=== PATIENT | male | born 1960 | race Caucasian/White ===

== ENCOUNTER → 2018-02-14 | Outpatient (CLI) | payer OTHER ==
[~2018-02-14] MED LIST: ATORVASTATIN CA20 M1 PO; DOXYCYCLINE100 M3 PO; IBUPROFEN600 MG PO; METOPROLOL SUCC50 M1 PO; ULTRAM50 MG PO; XARELTO10 MG PO; ZOLPIDEM TART10 MG PO
== END | disposition home or self-care (01) ==
LOC: RESCLI 01:49
DX: Z01.818 Encounter for other preprocedural examination (principal); I25.10 Atherosclerotic heart disease of native coronary artery without angina pectoris; I10 Essential (primary) hypertension; E78.5 Hyperlipidemia, unspecified; J45.20 Mild intermittent asthma, uncomplicated; R73.03 Prediabetes; E66.09 Other obesity due to excess calories; M20.12 Hallux valgus (acquired), left foot; M24.572 Contracture, left ankle; Z68.32 Body mass index [BMI] 32.0-32.9, adult; Z79.899 Other long term (current) drug therapy; Z87.891 Personal history of nicotine dependence

== ENCOUNTER → 2018-02-19 | Day surgery (SDC) | payer OTHER ==
[2018-02-14 13:51] LABS: BUN 9 mg/dl (7-24); CHLORIDE 105 mmol/L (98-107); CREATININE 0.59 mg/dL (0.70-1.30); POTASSIUM 3.8 mmol/L (3.5-5.1); SODIUM 139 mmol/L (136-145)
[2018-02-19] VITALS (7 sets, daily range): BP systolic 125–165; BP diastolic 56–87
[~2018-02-19] VITALS: Ht 193 cm; Wt 115.7 kg
--- NOTE | ~2018-02-19 | O ---
[place], [place] OPERATIVE NOTE [id number] UNIT #: [id number] ROOM: DOCTOR: LUIS BERRYGALINA BIRTHDATE: [birth year] DOS: 02/19/2018 SURGEON: Galina Smith DPM ASSISTANTS: 1. Dr. Jean Paul Young. 2. Hola Persaud, PGY-3. PREOPERATIVE DIAGNOSES: 1. Gastrocnemius equinus. 2. Hallux valgus on the left foot. PREOPERATIVE DIAGNOSES: 1. Gastrocnemius equinus. 2. Hallux valgus on the left foot. 3. 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 4. 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 PROCEDURES: 1. Gastrocnemius recession. 2. Lapidus bunionectomy. 3. Harvesting of calcaneal graft. 4. Capsulotomy second metatarsophalangeal joint. 5. Tendon transfer, the EDB into EDL to the left. INDICATIONS: The patient was seen in the preop holding area and appropriate site marking was performed. The patient agreed with the consent, preoperative management, and also with the appropriate site markings. He was brought in the OR and placed well-padded on OR table where anesthesia was achieved. Prior to this, he had a popliteal block performed. At this time, once anesthesia was achieved, his left foot and leg were prepped and draped in usual sterile fashion. Hemostasis was accomplished via mid thigh tourniquet. PROCEDURE #1, GASTROCNEMIUS RECESSION: Attention was directed to the posteromedial aspect of left lower leg where incision was made approximately 4 cm, was deepened in the same plane using sharp and blunt dissection, avoiding neurovascular structures, carried down to the deep tissues. At this point, I incised the deep fascial tissue at this time. This was incised and at this time, the sural nerves were all protected and retracted and the deep fascia was retracted at this time. The gastric aponeurosis was identified and a Lisa procedure was performed with the gastroc aponeurosis to increase the range of motion of the ankle joint. Deep tissues were closed with 0 Vicryl and skin was closed with 2-0 nylon. PROCEDURE #2, LAPIDUS BUNIONECTOMY: An incision was made over the TMT 1. It was deepened in the same plane using sharp and blunt dissection, avoiding neurovascular structures, carried down to the deep tissues and at this time, using retraction and dissection, the ligaments were taken down. At this time, significant amount of time was spent preparing the joint of the distal first [place], [place] OPERATIVE NOTE NAME: LEA ANTONY UNIT #: [id number] ROOM: DOCTOR: GALINA SMITH DPM BIRTHDATE: [birth year] metatarsal and the cuneiform. At this time, the base and the medial aspect of the second metatarsal as well was prepared using osteotomes, mallets, rongeurs, curettes, and drills of bleeding cancellous bone to the area of the TMT 1 as well as medial aspect of the second metatarsal. This was temporarily fixated with several K-wires and noted to be in good anatomic alignment. Small Lombardo clamp was used that reduced the IM angle to a good position at this point in time, which was performed checking the posture and noted to be in good position. A 4.0 solid cancellous screw was used from the distal first metatarsal base in to the cuneiform. At this point in time, an interfrag compression screw was used compressing the TMT 1 from distal first metatarsal cuneiform. Next, at this time, into bones, a medial-based plate was used and this was fixated with combination of locking and nonlocking screws with lag technique fixating the Lapidus and the bunion in anatomic alignment. At this point in time, this was noted to be in good position. PROCEDURE #3, HARVESTING OF CALCANEAL GRAFT: Next, attention was directed to the lateral aspect of the calcaneus where a stab incision was made inferior to the peroneal tendons and also to the sural nerve. A Bristol elevator was next used to remove the periosteum and allow for a 2.5 drillbit to puncture the lateral cortex of the calcaneus. At this time, curettes were used to harvest graft from the calcaneus and at this point in time, bone was harvested and this bone was packed into the TMT 1 deficit area, this was packed very tightly. The skin was closed using the lateral aspect of the calcaneus skin using 2-0 nylon. At this point in time, this bone was packed tightly and deep tissue was closed with 0 Vicryl, skin was closed using 2-0 nylon at the TMT 1. PROCEDURE 4, CAPSULOTOMY SECOND METATARSOPHALANGEAL JOINT: At this point in time, the second metatarsophalangeal joint was noted to be dorsally contracted toe with somewhat of a hammertoe or contracture, was elevating over to the first metatarsal. At this point in time, it was decided intraoperatively to make the second toe into its neutral position to prevent the great toe from underneath it. It was decided to do a tendon transfer and a capsulotomy of his second metatarsophalangeal joint. Tendon transfer EDB into EDL. At this time, attention was directed to the medial aspect of the second EDL tendon at the metatarsophalangeal joint. It was deepened in the same plane using sharp and blunt dissection, avoiding neurovascular structures, carried down to the deep tissues. At this point in time, the EDL and EDB tendons were isolated and . At this point in time, the EDL was corresponded proximally and the EDB was corresponded distal. At this point in time, a complete capsulotomy was performed with a #15 blade releasing the second metatarsal joint and an elevator was used to completely free the contracture at the metatarsophalangeal joint. PROCEDURE #5, TENDON TRANSFER EDB INTO EDL: At this point in time, the proximal stump of the EDB was placed in to the distal stump of the EDL with a weave graft under physiological tension. At this point in time, the K-wire was inserted from distal phalanx to cross the middle phalanx and proximal phalanx of the patient's second metatarsal to neutral anatomical position where it was in the same plane as the great toe. With this being done, the tendons were placed under physiological tension with the EDB into the distal stump of EDL and noted to be in good anatomical fixation under fluoroscopy. The skin was closed using [place], [place] OPERATIVE NOTE NAME: LEA ANTONY UNIT #: [id number] ROOM: DOCTOR: GALINA SMITH DPM BIRTHDATE: [birth year] 0 Vicryl and 2-0 nylon. Surgical wounds were dressed with Betadine-soaked Adaptic, 4 x 4s, Courtney in a sterile compression fashion. The tourniquet was dropped before 2 hours. Good cap refill time was noted to return to all digits of the left foot. He tolerated the procedure and anesthesia well. At this time, the wounds were dressed with Betadine-soaked Adaptic, 4 x 4s, Courtney in a sterile compressive fashion. He tolerated the procedure and anesthesia well and left the OR with vital signs stable and vascular status intact. BK cast applied. GALINA SMITH DPM CM:OPRECORD:OPERATIVE NOTE [id number] GALINA SMITH DPM 04/01/18 1549 interface
--- NOTE | ~2018-02-19 | WRIGHTHP ---
[place], [place] PATIENT HISTORY AND PHYSICAL EXAM [id number] UNIT #: [id number] ROOM: DOCTOR: GALINA SMITH DPM BIRTHDATE: [birth year] DOS: 02/19/2018 INDICATIONS: The patient is seen in the preop holding room and appropriate site marking was performed. He is aware of pros, cons, risks, and benefits. He understands overcorrection, undercorrection, recurrence, numbness, infection, nonunion, delayed union, malunion, DVT, PE, limb loss, RSD, CRPS, artery, vein and nerve damage. At this time, the patient is sent for surgery at [facility] on 02/19/2018 for gastroc recession, harvesting of calcaneal graft. At this point, he is aware of pros, cons, risks and benefits, understands pros, cons, risks and benefits. He understands about perioperative management. He agreed to appropriate site marking. He consented with the procedure using anticoagulation through surgery. He understands the pros, cons, risks, and benefits of this. With this in mind, he has agreed to the consent, signed the consent, verbally agreed to the anticoagulation as well as the postoperative management. GALINA SMITH DPM CM:HISPHYS:PATIENT HISTORY AND PHYSICAL EXAMINATION [id number] GALINA SMITH DPM 04/10/18 0755 interface
--- NOTE | ~2018-02-19 | EKG ---
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
--- NOTE | ~2018-02-19 | WRIGHTHP ---
[place], [place] PATIENT HISTORY AND PHYSICAL EXAM [id number] UN[facility] #: [id number] ROOM: DOCTOR: GALINA SMITH DPM BIRTHDATE: [birth year] DOS: 02/19/2018 LOWER EXTREMITY PHYSICAL EXAMINATION VASCULAR: Palpable pedal pulses 2/4 DP and PT. Good cap refill time of the left lower extremity. NEUROLOGIC: Intact epicritic sensation, left lower extremity. MUSCULOSKELETAL: He has a gastrocnemius equinus. He has an ankle joint contracture of the left posterior ankle. He also has instability and hypermobility of the first TMT 1 of the left. DERMATOLOGIC: Hyperkeratosis of sub-first metatarsal medially and also the right great toe secondary to valgus rotation of his great toe. ORTHOPEDIC: He has hallux valgus deformity on the left and he also has extensor substitution and joint contractures metatarsophalangeal joints 2, 3, 4, 5 left and metatarsophalangeal joint contracture, 2, 3, 4, 5. GALINA SMITH DPM CM:HISPHYS:PATIENT HISTORY AND PHYSICAL EXAMINATION [id number] GALINA SMITH DPM 04/10/18 0755 interface
== END | disposition home or self-care (01) ==
LOC: SDC 02-14 10:15
PROVIDERS: Podiatrist
DX: M21.6X2 Other acquired deformities of left foot (principal); M20.12 Hallux valgus (acquired), left foot; M24.575 Contracture, left foot; I10 Essential (primary) hypertension; I25.10 Atherosclerotic heart disease of native coronary artery without angina pectoris; E78.5 Hyperlipidemia, unspecified; M19.90 Unspecified osteoarthritis, unspecified site; G89.29 Other chronic pain; F41.9 Anxiety disorder, unspecified; Z95.5 Presence of coronary angioplasty implant and graft; Z90.49 Acquired absence of other specified parts of digestive tract; Z98.890 Other specified postprocedural states; Z88.6 Allergy status to analgesic agent; Z88.5 Allergy status to narcotic agent; Z87.891 Personal history of nicotine dependence

== ENCOUNTER 2020-03-20 20:49 | Emergency (ER) | payer MEDICARE ==
[~2020-03-20] VITALS: Wt 110.7 kg
[2020-03-20 21:32] LABS: BILIRUBIN Negative (Negative); BLOOD Negative (Negative); CLARITY Clear (Clear); COLOR Yellow (Yellow); GLUCOSE Negative (Negative); KETONE Trace (Negative); LEUKO ESTERASE Negative (Negative); NITRITE Negative (Negative); SPECIFIC GRAVITY 1.025 (1.001-1.030)
[2020-03-20 21:35] LABS: BASO % 0.2 % (0.0-1.0); EOS # 0.2 10*3/uL (0.0-0.4); EOS % 1.5 % (1.0-4.0); HEMATOCRIT 45.4 % (42.0-52.0); LYMPH % 17.8 % (27.0-41.0); MEAN CELL VOLUME 97.4 fl (80.0-94.0); MEAN CORPUSCULAR HGB 31.5 pg (27.0-31.0); MEAN CORPUSCULAR HGB CONC 32.4 g/dl (33.0-37.0); MEAN PLATELET VOLUME 9.1 fl (9.6-12.3); MONO # 1.1 10*3/uL (0.1-1.0); MONO % 9.6 % (3.0-9.0); NEUT # 7.8 10*3/uL (2.3-7.9); NEUT % 70.3 % (47.0-73.0); PLATELET COUNT AUTOMATED 280 10*3/uL (130-400); RED BLOOD COUNT 4.66 10*6/uL (4.50-5.90); RED CELL DISTRI WIDTH 13.7 % (0-14.5); WHITE BLOOD COUNT 11.2 10*3/uL (4.8-10.8)
[2020-03-20 21:48] LABS: BACTERIA 1+; MUCOUS 3+
[2020-03-20 21:54] LABS: ALBUMIN 3.1 gm/dl (3.1-4.5); ALKALINE PHOSPHATASE 61 U/L (45-117); BUN 15 mg/dl (7-24); CHLORIDE 109 mmol/L (98-107); CREATININE 0.83 mg/dL (0.70-1.30); LIPASE 121 U/L (73-393); POTASSIUM 3.9 mmol/L (3.5-5.1); SGOT/AST 21 IU/L (3-35); SGPT/ALT 25 U/L (12-78); SODIUM 142 mmol/L (136-145); TOTAL PROTEIN 6.3 gm/dL (6.4-8.2)
== END 2020-03-21 00:24 | disposition home or self-care (01) ==
LOC: ED 20:49
PROVIDERS: Nurse Practitioner Family
DX: K52.9 Noninfective gastroenteritis and colitis, unspecified (principal); Z88.6 Allergy status to analgesic agent; Z79.899 Other long term (current) drug therapy

== ENCOUNTER 2020-03-23 18:33 | Emergency (ER) | payer MEDICARE ==
[~2020-03-23] VITALS: Wt 111.1 kg
[2020-03-23 19:23] LABS: BASO % 0.3 % (0.0-1.0); EOS # 0.2 10*3/uL (0.0-0.4); EOS % 2.8 % (1.0-4.0); HEMATOCRIT 43.3 % (42.0-52.0); LYMPH # 1.4 10*3/uL (1.3-4.4); LYMPH % 20.5 % (27.0-41.0); MEAN CELL VOLUME 96.4 fl (80.0-94.0); MEAN CORPUSCULAR HGB 31.8 pg (27.0-31.0); MONO # 0.6 10*3/uL (0.1-1.0); MONO % 8.9 % (3.0-9.0); NEUT # 4.7 10*3/uL (2.3-7.9); NEUT % 67.2 % (47.0-73.0); PLATELET COUNT AUTOMATED 273 10*3/uL (130-400); RED BLOOD COUNT 4.49 10*6/uL (4.50-5.90); RED CELL DISTRI WIDTH 13.4 % (0-14.5)
[2020-03-23 19:38] LABS: ALBUMIN 3.2 gm/dl (3.1-4.5); ALKALINE PHOSPHATASE 61 U/L (45-117); BUN 13 mg/dl (7-24); CHLORIDE 109 mmol/L (98-107); LIPASE 193 U/L (73-393); POTASSIUM 3.9 mmol/L (3.5-5.1); SGOT/AST 23 IU/L (3-35); SGPT/ALT 19 U/L (12-78); SODIUM 146 mmol/L (136-145); TOTAL PROTEIN 6.7 gm/dL (6.4-8.2)
[2020-03-23] MEDS ORDERED: VANCOMYCIN HCL125 MG PO ×2 (22:08)
== END 2020-03-23 22:20 | disposition home or self-care (01) ==
LOC: ED 18:33
PROVIDERS: Physician Assistant
DX: K52.9 Noninfective gastroenteritis and colitis, unspecified (principal); Z79.899 Other long term (current) drug therapy; Z88.8 Allergy status to other drugs, medicaments and biological substances

== ENCOUNTER 2020-03-25 02:01 | Inpatient (IN) | payer MEDICARE ==
[~2020-03-25] VITALS: Ht 193 cm; Wt 111.0 kg
[2020-03-25] VITALS (7 sets, daily range): BP systolic 110–160; BP diastolic 59–100
[~2020-03-25 02:01] MED LIST changes: +VANCOMYCIN HCL125 MG PO
--- NOTE | 2020-03-25 02:30 | NUR ---
ACCESSED [employer].
--- NOTE | 2020-03-25 03:25 | NUR ---
PT. HAS FILLED 2 EMESIS BAGS.
--- NOTE | 2020-03-25 03:26 | NUR ---
PT. UP AND TO BATHROOM AT THIS TIME.
--- NOTE | 2020-03-25 03:57 | NUR ---
PT. STILL C/O PAIN IN ABDOMEN, DR. POE NOTIFIED. WILL CONTINUE TO MONITOR.
--- NOTE | 2020-03-25 04:05 | NUR ---
MEDICATED PT. AGAIN WITH MORPHINE SULFATE 4MG. WILL CONTINUE TO MONITOR.
[2020-03-25 04:18] LABS: HEMATOCRIT 41.9 % (42.0-52.0); MEAN CELL VOLUME 97.2 fl (80.0-94.0); MEAN CORPUSCULAR HGB 32.3 pg (27.0-31.0); MEAN CORPUSCULAR HGB CONC 33.2 g/dl (33.0-37.0); MEAN PLATELET VOLUME 9.2 fl (9.6-12.3); PLATELET COUNT AUTOMATED 272 10*3/uL (130-400); RED BLOOD COUNT 4.31 10*6/uL (4.50-5.90); RED CELL DISTRI WIDTH 13.2 % (0-14.5); WHITE BLOOD COUNT 11.5 10*3/uL (4.8-10.8)
[2020-03-25 04:19] LABS: ALBUMIN 3.6 gm/dl (3.1-4.5); ALKALINE PHOSPHATASE 60 U/L (45-117); BASO % 0.3 % (0.0-1.0); BUN 12 mg/dl (7-24); CHLORIDE 104 mmol/L (98-107); CREATININE 0.86 mg/dL (0.70-1.30); EOS # 0.2 10*3/uL (0.0-0.4); EOS % 1.6 % (1.0-4.0); LIPASE 88 U/L (73-393); LYMPH # 1.2 10*3/uL (1.3-4.4); MONO # 1.2 10*3/uL (0.1-1.0); MONO % 10.1 % (3.0-9.0); NEUT # 8.9 10*3/uL (2.3-7.9); NEUT % 77.7 % (47.0-73.0); POTASSIUM 3.1 mmol/L (3.5-5.1); SGOT/AST 28 IU/L (3-35); SGPT/ALT 21 U/L (12-78); SODIUM 143 mmol/L (136-145); TOTAL PROTEIN 6.8 gm/dL (6.4-8.2)
[2020-03-25] MEDS ORDERED: OXYCODONE HCL10 M1 PO (06:17)
[2020-03-25] MEDS ORDERED: PROTONIX40 MG PO (06:17)
[2020-03-25] MEDS ORDERED: VENT7GM INH (06:18)
--- NOTE | 2020-03-25 07:01 | NUR ---
PT. RESTING IN BED. RR EASY AND NON-LABORED. APPEARS TO BE IN NO DISTRESS. CALL LIGHT WITHIN REACH. WILL CONTINUE TO MONITOR.
--- NOTE | 2020-03-25 08:04 | NUR ---
PT RESTING IN BED. C/O LEFT LOWER QUAD PAIN, RATES PAIN 9 ON PAIN SCALE 0-10. MEDICATED WITH MORPHINE IV PER PRN ORDER, SEE EMAR. ABD TENDER TO TOUCH. IVF INFUSING WITH NO PROBLEM. CALL LIGHT IN REACH. WILL CON'T TO MONITOR.
--- NOTE | 2020-03-25 08:16 | NUR ---
PT WAKE AND ORINETED. PT C/O CHRONIC BACK PAIN, MORPINE GIVEN, VS WNL. NS INFUSING AT 125 CC/HR PER ORDER. LUNGS CLEAR, ABD SOFT NON TENDER. RESPIRATIONS EASY NON-LABORED. CALL LIGHT IN REACH. MENU GIVEN TO ORDER BREAKFAST, PT IS AMBULATORY TO THE PHONE. WILL CONTINUE TO MONITOR.
--- NOTE | 2020-03-25 09:26 | NUR ---
FRANCESCA INGRAM TO DR. FAYE SPOKE TO VINOD, ADVISED OF CONSULT.
--- NOTE | 2020-03-25 10:47 | NUR ---
PT VERY UPSET HE IS IN THE ER FOR ADMISSION. PT HAS BEEN WELL TAKEN OF. MEDICATIONS ORDERED, INCLUDING CATHFLO HE WANTED, BREAKFAST, QUESTIONS WERE ANSWERED, NEW LINENS PRVOIDED. PT REPORTS HE DOSE NOT WANT TO BE HERE IN THE ER. PT VERY RUDE.
--- NOTE | 2020-03-25 12:48 | NUR ---
PT MEDICATED FOR PAIN. PT UP AND AMBULATING ABOUT THE ROOM AND DEPT, NO DISTRESS NOTED. WILL MONITOR.
--- NOTE | 2020-03-25 14:37 | NUR ---
PT ADMINISTERED 1MG MORPHINE X1 PER ORDER PT IN NO DISTRESS, WATCHING TV, TAKING ON THE PHONE AND AMBULATING IN ROOM. WILL MONITOR.
--- NOTE | 2020-03-25 16:35 | NUR ---
PT WAS ASK LET LET ME KNOW WHEN OR IF HE CAN PROVIDE A STOOL SAMPLE, PT REPORTS HE DOES NOT NEED TO HAVE A BM AT THIS. PT HAS NOT REPORTED ANY DIARRHEA THIS SHIFT. PT UP AMBULATING, NO DISTRESS NOTED.
--- NOTE | 2020-03-25 21:00 | NUR ---
PT RESTING IN BED SLEEPING, RESP-EASY AND REGULAR. IVF INFUSING WITH NO PROBLEM. MEDICATION SEEMS TO BE EFFECTIVE. CALL LIGHT IN REACH.
--- NOTE | 2020-03-25 23:20 | NUR ---
PT IS VERY SHORT OF BREATH MOVING FROM CART TO BED. PT ANXIOUS AND YELLING TO WAIT AND LEAVE HIM ALONE RIGHT NOW. REFUSED TO LOOK AT [place] FOR WOUND PT STATE HE HAS. OXYGEN IN USE. RESPIRATORY CALLED FOR TREATMENT.
--- NOTE | 2020-03-25 23:25 | NUR ---
MEDICATED WITH MORPHINE IV PER PRN ORDER, SEE EMAR. FOR C/O LEFT SIDE/RIB PAIN, RATES PAIN 8 ON PAIN SCALE 0-10. CALL ALIGHT IN REACH.
--- NOTE | 2020-03-25 23:42 | NUR ---
PT RECEIVING BREATHING TX. AT THIS TIME. RESP-22, BREATHING EASIER AT THIS TIME. MEDICATION EFFECTIVE PER PT. CALL LIGHT IN REACH.
[2020-03-26] VITALS: BP 133/70
--- NOTE | 2020-03-26 | NUR ---
PT SLEEPING IN BED. RESP-EASY AND REGULAR. IVF INFUSING WITH NO PROBLEM. CALL LIGHT IN REACH. SEE SHIFT ASSESSMENT.
--- NOTE | 2020-03-26 01:15 | NUR ---
PT C/O LEFT LOWER QUAD PAIN, RATES PAIN 9 ON PAIN SCALE 0-10. MEDICATED WITH ROXYCODONE PO, SEE EMAR. CALL LIGHT IN REACH. IVF INFUSING WITH NO PROBLEM.
--- NOTE | 2020-03-26 02:52 | NUR ---
MEDICATED WITH MORPHINE IV PER PRN ORDER, SEE EMAR. FOR C/O LLQ PAIN, RATES PAIN 7 OR 8 ON PAIN SCALE 0-10. CALL LIGHT IN REACH.
--- NOTE | 2020-03-26 03:50 | NUR ---
PT RESTING IN BED WITH EYES CLOSED. RESP-EASY AND REGULAR. MEDICATION SEEMS TO BE EFFECTIVE. CALL LIGHT IN REACH.
--- NOTE | 2020-03-26 05:54 | NUR ---
MEDICATED WITH ROUTINE OXYCODONE FOR C/O LLQ PAIN, RATES PAIN 6 ON PAIN SCALE 0-10. CALL LIGHT IN REACH. IVF INFUSING WITH NO PROLBEM.
--- NOTE | 2020-03-26 06:45 | NUR ---
PT RESTING IN BED. STATES MEDICATION HELPS. NO NEW COMPLAINTS. CALL LIGHT IN REACH.
[2020-03-26 07:00] LABS: BASO % 0.3 % (0.0-1.0); EOS # 0.2 10*3/uL (0.0-0.4); EOS % 3.5 % (1.0-4.0); HEMATOCRIT 37.2 % (42.0-52.0); LYMPH # 1.1 10*3/uL (1.3-4.4); LYMPH % 17.5 % (27.0-41.0); MEAN CELL VOLUME 99.2 fl (80.0-94.0); MEAN CORPUSCULAR HGB 32.5 pg (27.0-31.0); MEAN CORPUSCULAR HGB CONC 32.8 g/dl (33.0-37.0); MEAN PLATELET VOLUME 9.3 fl (9.6-12.3); MONO # 0.8 10*3/uL (0.1-1.0); MONO % 12.1 % (3.0-9.0); NEUT # 4.2 10*3/uL (2.3-7.9); NEUT % 66.3 % (47.0-73.0); PLATELET COUNT AUTOMATED 214 10*3/uL (130-400); RED BLOOD COUNT 3.75 10*6/uL (4.50-5.90); RED CELL DISTRI WIDTH 13.3 % (0-14.5); WHITE BLOOD COUNT 6.4 10*3/uL (4.8-10.8)
[2020-03-26 07:15] LABS: BUN 8 mg/dl (7-24); CHLORIDE 107 mmol/L (98-107); CREATININE 0.62 mg/dL (0.70-1.30); POTASSIUM 3.8 mmol/L (3.5-5.1); SODIUM 142 mmol/L (136-145)
[2020-03-26 08:00] VITALS: BP 125/74
--- NOTE | 2020-03-26 08:33 | NUR ---
MORPHINE 2 MG GIVEN FOR C/O GENERALIZED ABDOMINAL PAIN,12/20.
--- NOTE | 2020-03-26 09:28 | NUR ---
Recreational Sports Director SPOKE WITH PATIENT VIA PHONE. Patient states lives at ALONE with NO ONE. There are 13 steps in the home. Physician: ANDREZ TRISTAN Pharmacy: [facility] Home health services: NONE Patient's level of ADLs: INDEPENDENT Patient has working utilities: YES DME: [facility] [facility] Follow-up physician's appointment after d/c: WILL BE MADE BY RN HOSPITALIST COORDINATOR Does patient want to access PORTAL?: NO Discharge plan : CLOTH BLEACHING RANGE TENDER SPOKE WITH THE PATIENT VIA PHONE. PATIENT STATED HE LIVES AT HOME ALONE. PATIENT STATED THAT HE IS INDEPENDENT IN HIS CARE. PATIENT STATED THAT HE DOES HAVE HOME OXYGEN AND NEBULIZER FROM HIS DOCTORS OFFICE. PATIENT DOES DRIVE. PATIENT REPORTS NO NEEDS AT THIS TIME AND WILL RETURN HOME UPON DISCHARGE. YASH HUDSON
--- NOTE | 2020-03-26 10:50 | NUR ---
Time: 1050 A 89 year old FEMALE admitted to 5E under services of CABRERA CLEMENTE DO. Pt. arrived via bed from ER. Chief complaint: UTI. LINO QUINTEROS
--- NOTE | 2020-03-26 11:28 | NUR ---
NOTIFIED DR WOMACK OF LOSS OF IV ACCESS. PT REFUSES ANOTHER ACCUCATH AND ANY ATTEMPT TO PLACE A PERIPHERL.
[2020-03-26 12:00] VITALS: BP 132/84
--- NOTE | 2020-03-26 13:51 | NUR ---
MORPHINE 2 MG GIVEN FOR C/O BABDOMINAL PAIN, 12/20.
[2020-03-26 16:00] VITALS: BP 123/67
--- NOTE | 2020-03-26 19:30 | NUR ---
PT RESTING IN BED, SLEEPING. RESPIRATIONS EASY AND UNLABORED. NO S/S OF DISTRESS NOTED. CALL LIGHT IN REACH.
[2020-03-26 20:00] VITALS: BP 118/65
--- NOTE | 2020-03-26 20:19 | NUR ---
PT GIVEN MORPHINE 2 MG FOR C/O PAIN TO LLQ OF ABDOMEN. WILL MONITOR FOR EFFECTIVENESS. CALL LIGHT IN REACH.
--- NOTE | 2020-03-26 21:19 | NUR ---
PT STATES THAT MORPHINE IS SOMEWHAT EFFECTIVE.
--- NOTE | 2020-03-26 21:57 | NUR ---
PT ASKS FOR SOMETHING ELSE FOR PAIN. DR BENITEZ NOTIFIED AND ORDERS RECEIVED FOR ONE TIME DOSE OF TORADOL 15 MG VIA IVP. PT MEDICATED AT THIS TIME. WILL MONITOR FOR EFFECTIVENESS. CALL LIGHT IN REACH.
--- NOTE | 2020-03-26 22:57 | NUR ---
PT STATES THAT TORADOL IS EFFECTIVE.
[2020-03-27] VITALS: BP 117/50
--- NOTE | 2020-03-27 01:09 | NUR ---
PT GIVEN MORPHINE FOR C/O PAIN TO LLQ OF ABDOMEN. WILL MONITOR FOR EFFECTIVENESS.
--- NOTE | 2020-03-27 02:09 | NUR ---
PT STATES THAT MORPHINE IS SOMEWHAT EFFECTIVE.
--- NOTE | 2020-03-27 05:10 | NUR ---
PT GIVEN MORPHINE 2 MG FOR C/O PAIN TO LLQ OF ABDOMEN. WILL MONITOR FOR EFFECTIVENESS. CALL LIGHT IN REACH.
--- NOTE | 2020-03-27 06:10 | NUR ---
PT STATES THAT MORPHINE IS SOMEWHAT EFFECTIVE.
[2020-03-27 06:40] LABS: BASO % 0.5 % (0.0-1.0); EOS # 0.2 10*3/uL (0.0-0.4); EOS % 3.1 % (1.0-4.0); MEAN CELL VOLUME 97.4 fl (80.0-94.0); MEAN CORPUSCULAR HGB 32.1 pg (27.0-31.0); MEAN CORPUSCULAR HGB CONC 32.9 g/dl (33.0-37.0); MEAN PLATELET VOLUME 9.4 fl (9.6-12.3); MONO # 0.7 10*3/uL (0.1-1.0); MONO % 12.1 % (3.0-9.0); NEUT # 4.1 10*3/uL (2.3-7.9); NEUT % 66.8 % (47.0-73.0); PLATELET COUNT AUTOMATED 224 10*3/uL (130-400); RED CELL DISTRI WIDTH 13.1 % (0-14.5); WHITE BLOOD COUNT 6.1 10*3/uL (4.8-10.8)
[2020-03-27 06:58] LABS: ALBUMIN 2.9 gm/dl (3.1-4.5); ALKALINE PHOSPHATASE 53 U/L (45-117); BUN 6 mg/dl (7-24); CHLORIDE 113 mmol/L (98-107); CREATININE 0.58 mg/dL (0.70-1.30); POTASSIUM 4.1 mmol/L (3.5-5.1); SGOT/AST 24 IU/L (3-35); SGPT/ALT 14 U/L (12-78); SODIUM 142 mmol/L (136-145); TOTAL PROTEIN 5.8 gm/dL (6.4-8.2)
[2020-03-27 08:00] VITALS: BP 160/98
--- NOTE | 2020-03-27 10:11 | NUR ---
MORPHINE 2 MG GIVEN FOR C/O ABD PAIN,12/20.
[2020-03-27 12:00] VITALS: BP 158/78
--- NOTE | 2020-03-27 13:33 | NUR ---
NOTIFIED DR MOYA THAT PER MICRO PT WAS C DIFF POSITIVE.
--- NOTE | 2020-03-27 14:40 | NUR ---
MORPHINE 2 MG GIVEN FOR C/O ABD PAIN,12/20.
--- NOTE | 2020-03-27 15:03 | NUR ---
PT REQUESTING I CALL PER PT HE STATED " TOLD HIM HE WOULD GIVE HIM MORE MEDICATION". I NOTIFIED DR ADAIR.
[2020-03-27 16:00] VITALS: BP 138/64
--- NOTE | 2020-03-27 16:20 | NUR ---
PT UPSET AND SLAMMING STUFF AROUND INSIDE THE ROOM REQUESTING ADDITIONAL PAIN MEDICATION. PT STATES THE MORPHINE AND HIS SCHEDULED ORAL ROXICODONE 10 MG WERE NOT EFFECTIVE. PT UPSET AND CUSSING. SPOKE WITH DR ADAIR TO SEE PT. PT REQUESTING TO LICENSED CLUB MANAGER AND PAIN MEDS.
--- NOTE | 2020-03-27 16:50 | NUR ---
MEDICATED PT WITH MORPHINE 2MG IX DOSE. ASKED PT AT THIS TIME IF HE WOULD STILL LIKE TO SPEAK TO THE INDUSTRIAL DESIGN INTERN. PT REFUSES AT THIS TIME.
--- NOTE | 2020-03-27 19:48 | NUR ---
PATIENT RESTING IN BED. CO ABD PAIN RATED A 9/10. MEDICATED WITH PRN MORPHINE PER PATIENT REQUEST AND PER ORDER. WILL ASSESS EFFECTIVENESS. DENIES ANY OTHER NEEDS/COMPLAINTS. ASSESSMENT COMPLETE. RESPS EASY AND REGULAR. CALL LIGHT IN REACH.
[2020-03-27 20:00] VITALS: BP 128/85
--- NOTE | 2020-03-27 20:48 | NUR ---
PER PATIENT MORPHINE HELPED SOME.
--- NOTE | 2020-03-27 21:55 | NUR ---
INFORMED PATIENT COMPLAINING OF PAIN AND REQUESTING ANOTHER DOSE OF MORPHINE LIKE HE RECEIVE EARLIER. SEE NEW ORDERS.
--- NOTE | 2020-03-27 22:32 | NUR ---
MEDICATED WITH PRN MORPHINE FOR CO ABDOMINAL PAIN. WILL ASSESS EFFECTIVENESS. CALL LIGHT IN REACH.
--- NOTE | 2020-03-27 23:42 | NUR ---
SCHEDULE PO ROXICODONE AND PO VANC GIVEN PER ORDER. PT RATING ABDOMINAL PAIN 12/20. WILL MONITOR EFFECTIVENESS. CALL LIGHT IN REACH.
[2020-03-28] VITALS: BP 134/77
--- NOTE | 2020-03-28 00:35 | NUR ---
EARLIER MEDS APPEAR EFFECTIVE. PT ASLEEP IN BED. NO S/S OF DISTRESS NOTED. WILL MONITOR. CALL LIGHT IN REACH.
--- NOTE | 2020-03-28 02:24 | NUR ---
IV MORPHINE GIVEN PER PRN ORDER FOR C/O ABDOMINAL PAIN RATED 7/10. WILL MONITOR. CALL LIGHT IN REACH.
--- NOTE | 2020-03-28 03:01 | NUR ---
EARLIER MEDICATION APPEARS EFFECTIVE. PT ASLEEP IN BED. RESPIRATIONS EASY. NO S/S OF DISTRESS NOTED. WILL MONITOR. CALL LIGHT IN REACH.
--- NOTE | 2020-03-28 05:40 | NUR ---
PT REQUESTED AND RECEIVED IV MORPHINE FOR C/O ABD PAIN RATED 8/10. STATES SCHEDULED ANITA NOT EFFECTIVE AT THIS TIME. WILL MONITOR. CALL LIGHT IN REACH.
--- NOTE | 2020-03-28 06:30 | NUR ---
EARLIER MEDS APPEAR EFFECTIVE. NO S/S OF DISTRESS NOTED.
[2020-03-28 08:00] VITALS: BP 139/72
--- NOTE | 2020-03-28 08:00 | NUR ---
IN TO ROOM. PATIENT AWAKE, ALERT AND ORIENTED. PT COMPLAINS THAT HE IS HAVING LEFT LOWER QUD PAIN. PT EDUCATED ON PRN PAIN MEDICATIONS. NO OTHER STATED COMPLAINTS AT THIS TIME. RESPIRATIONS ARE EASY AND REGULAR. NO SOB NOTED AT REST. PT ABLE TO REPOSITION SELF FOR COMFORT, AND ENCOURAGE TO DO SO. BED IN LOWEST LOCKED POSITION AND CALL LIGHT WITHIN REACH. WILL CONTINUE TO MONITOR.
--- NOTE | 2020-03-28 09:00 | NUR ---
case management visits with patient, he states he will return home when discharged and denies any home needs, case management will follow
--- NOTE | 2020-03-28 09:04 | NUR ---
PT COMPLAINS OF LEFT LOWER QUAD PAIN RATED AT 8. PRN MORPHINE ADMINISTERED AT THIS TIME. WILL MONITOR FOR EFFECTIVENESS.
--- NOTE | 2020-03-28 10:00 | NUR ---
PT STATES MORPHINE WAS EFFECTIVE.
[2020-03-28 12:00] VITALS: BP 140/68
--- NOTE | 2020-03-28 13:03 | NUR ---
PT COMPLAINS OF LEFT LOWER QUAD PAIN RATED AT AN 8. PRN MORPHINE ADMINISTERED AT THIS TIME.
--- NOTE | 2020-03-28 14:00 | NUR ---
PT STATES MORPHINE WAS EFFECTIVE.
[2020-03-28 16:00] VITALS: BP 123/57
[2020-03-28 20:00] VITALS: BP 129/69
--- NOTE | 2020-03-28 20:53 | NUR ---
IV MORPHINE GIVEN FOR C/O ABDOMINAL PAIN RATED 7/10. WILL MONITOR EFFECTIVENESS. CALL LIGHT IN REACH.
--- NOTE | 2020-03-28 21:45 | NUR ---
EARLIER MEDS APPEAR EFFECTIVE. PT ASLEEP. NO S/S OF DISTRESS NOTED. WILL MONITOR. CALL LIGHT IN REACH.
--- NOTE | 2020-03-28 23:00 | NUR ---
SCHEDULED ROXICODONE GIVEN PER ORDER. PT RATING ABD PAIN 12/20. WILL MONITOR. CALL LIGHT IN REACH.
--- NOTE | 2020-03-28 23:30 | NUR ---
NO FURTHER COMPLAINTS FROM PT. PT DENIES ANY NEEDS. WILL MONITOR.
[2020-03-29] VITALS: BP 150/82
--- NOTE | 2020-03-29 | NUR ---
PATIENT MEDICATED WITH MORPHINE FOR C/O LLQ PAIN 12/20. WILL MONITOR
--- NOTE | 2020-03-29 00:45 | NUR ---
EARLIER MEDICATION APPEARS EFFECTIVE. PT ASLEEP. NO S/S OF DISTRESS NOTED.
--- NOTE | 2020-03-29 03:45 | NUR ---
PT REQUESTED AND RECEIVED IV MORPHINE PER PRN ORDER FOR C/O PAIN IN LLQ RATED 7/10. WILL MONITOR. CALL LIGHT IN REACH.
--- NOTE | 2020-03-29 04:30 | NUR ---
PT SLEEPING. EARLIER MEDS APPEAR EFFECTIVE. WILL MONITOR. CALL LIGHT IN REACH.
--- NOTE | 2020-03-29 05:51 | NUR ---
SCHEDULED PO ROXICODONE GIVEN. PT RATING PAIN IN ABDOMEN 11/19. WILL MONITOR. CALL LIGHT IN REACH.
--- NOTE | 2020-03-29 06:38 | NUR ---
PT SLEEPING. EARLIER MEDS APPEAR EFFECTIVE. WILL MONITOR.
--- NOTE | 2020-03-29 07:07 | NUR ---
24 HR chart check completed.
[2020-03-29 08:00] VITALS: BP 144/77
[2020-03-29] MEDS ORDERED: VANCOMYCIN HCL250 MG PO ×2 (08:55)
--- NOTE | 2020-03-29 09:00 | NUR ---
case management talks with patient, he is a possibly discharge to home today, he denies any home needs, case management will follow
--- NOTE | 2020-03-29 10:48 | NUR ---
CALLED JASWINDER CARVAJAL AND NOTIFIED HER THAT PT WAS REQUESTING A HEPARIN FLUSH TO DE-ACCESS MEDIPORT. SEE NEW ORDER.
--- NOTE | 2020-03-29 11:26 | NUR ---
Discharge instructions reviewed with patient/family. Patient receptive and verbalizes understanding. Follow-up care arranged. Written instructions given to patient/family. MEDIPORT WAS DE-ACCESSED. PT HAD NO QUESTIONS AND UNDERSTOOD THAT HE SHOULD BE WIPING DOWN SURFACES AND THE TOLIET AFTER EVERY USE AND TO PRACTICE GOOD HAND HYGIENE. [facility]
== END 2020-03-29 11:26 | disposition home or self-care (01) | DRG 373 ==
LOC: ED 02:01 → EDHOLD 05:14 → 5E 05:14
PROVIDERS: Internal Medicine; ADMIT Internal Medicine; ATTEND Internal Medicine
DX: A04.72 Enterocolitis due to Clostridium difficile, not specified as recurrent (principal); D53.9 Nutritional anemia, unspecified; E87.6 Hypokalemia; R73.9 Hyperglycemia, unspecified; E83.41 Hypermagnesemia; I10 Essential (primary) hypertension; E78.5 Hyperlipidemia, unspecified; I25.10 Atherosclerotic heart disease of native coronary artery without angina pectoris; K21.9 Gastro-esophageal reflux disease without esophagitis; Z88.5 Allergy status to narcotic agent; Z88.8 Allergy status to other drugs, medicaments and biological substances; Z87.891 Personal history of nicotine dependence; Z82.0 Family history of epilepsy and other diseases of the nervous system; Z80.9 Family history of malignant neoplasm, unspecified; Z79.899 Other long term (current) drug therapy; Z79.01 Long term (current) use of anticoagulants

== ENCOUNTER 2020-04-09 16:26 | Emergency (ER) | payer MEDICARE ==
[~2020-04-09 16:26] MED LIST changes: +OXYCODONE HCL10 M1 PO; +PROTONIX40 MG PO; +VANCOMYCIN HCL250 MG PO; +VENT7GM INH
[2020-04-09 19:28] LABS: BASO % 0.4 % (0.0-1.0); EOS # 0.2 10*3/uL (0.0-0.4); EOS % 4.1 % (1.0-4.0); LYMPH # 1.2 10*3/uL (1.3-4.4); LYMPH % 24.9 % (27.0-41.0); MEAN CELL VOLUME 97.2 fl (80.0-94.0); MEAN CORPUSCULAR HGB CONC 32.9 g/dl (33.0-37.0); MEAN PLATELET VOLUME 9.2 fl (9.6-12.3); MONO # 0.6 10*3/uL (0.1-1.0); MONO % 12.2 % (3.0-9.0); NEUT # 2.9 10*3/uL (2.3-7.9); NEUT % 58.2 % (47.0-73.0); PLATELET COUNT AUTOMATED 308 10*3/uL (130-400); RED BLOOD COUNT 4.22 10*6/uL (4.50-5.90); RED CELL DISTRI WIDTH 13.1 % (0-14.5); WHITE BLOOD COUNT 4.9 10*3/uL (4.8-10.8)
[2020-04-09 19:43] LABS: ALBUMIN 3.2 gm/dl (3.1-4.5); ALKALINE PHOSPHATASE 71 U/L (45-117); BUN 7 mg/dl (7-24); CHLORIDE 110 mmol/L (98-107); CREATININE 0.54 mg/dL (0.70-1.30); LIPASE 181 U/L (73-393); POTASSIUM 3.8 mmol/L (3.5-5.1); SGOT/AST 23 IU/L (3-35); SGPT/ALT 19 U/L (12-78); SODIUM 140 mmol/L (136-145); TOTAL PROTEIN 6.3 gm/dL (6.4-8.2)
== END 2020-04-09 20:41 | disposition home or self-care (01) ==
LOC: ED 16:26
PROVIDERS: Physician Assistant
DX: R19.7 Diarrhea, unspecified (principal); Z88.8 Allergy status to other drugs, medicaments and biological substances; Z79.899 Other long term (current) drug therapy; Z90.49 Acquired absence of other specified parts of digestive tract

== ENCOUNTER 2020-04-10 02:43 | Emergency (ER) | payer MEDICARE ==
[~2020-04-10] VITALS: Ht 193 cm; Wt 108.9 kg
[2020-04-10 03:49] LABS: BASO % 0.8 % (0.0-1.0); EOS # 0.3 10*3/uL (0.0-0.4); EOS % 4.8 % (1.0-4.0); HEMATOCRIT 42.1 % (42.0-52.0); LYMPH # 1.4 10*3/uL (1.3-4.4); LYMPH % 26.4 % (27.0-41.0); MEAN CELL VOLUME 98.1 fl (80.0-94.0); MEAN CORPUSCULAR HGB 32.2 pg (27.0-31.0); MEAN CORPUSCULAR HGB CONC 32.8 g/dl (33.0-37.0); MEAN PLATELET VOLUME 9.1 fl (9.6-12.3); MONO # 0.8 10*3/uL (0.1-1.0); NEUT # 2.7 10*3/uL (2.3-7.9); NEUT % 52.8 % (47.0-73.0); PLATELET COUNT AUTOMATED 334 10*3/uL (130-400); RED BLOOD COUNT 4.29 10*6/uL (4.50-5.90); RED CELL DISTRI WIDTH 13.2 % (0-14.5); WHITE BLOOD COUNT 5.2 10*3/uL (4.8-10.8)
[2020-04-10 04:01] LABS: BUN 9 mg/dl (7-24); CHLORIDE 110 mmol/L (98-107); POTASSIUM 3.8 mmol/L (3.5-5.1); SODIUM 142 mmol/L (136-145)
== END 2020-04-10 06:46 | disposition home or self-care (01) ==
LOC: ED 02:43
PROVIDERS: Emergency Medicine
DX: R11.10 Vomiting, unspecified (principal); I25.10 Atherosclerotic heart disease of native coronary artery without angina pectoris; I10 Essential (primary) hypertension; K21.9 Gastro-esophageal reflux disease without esophagitis; E78.5 Hyperlipidemia, unspecified; Z88.6 Allergy status to analgesic agent; Z79.899 Other long term (current) drug therapy; Z87.891 Personal history of nicotine dependence

== ENCOUNTER 2020-04-16 11:43 | Emergency (ER) | payer MEDICARE ==
[~2020-04-16] VITALS: Ht 193 cm; Wt 109.8 kg
[2020-04-16 12:41] LABS: BASO % 0.3 % (0.0-1.0); EOS # 0.1 10*3/uL (0.0-0.4); EOS % 2.1 % (1.0-4.0); HEMATOCRIT 42.1 % (42.0-52.0); LYMPH # 0.8 10*3/uL (1.3-4.4); LYMPH % 13.3 % (27.0-41.0); MEAN CELL VOLUME 96.1 fl (80.0-94.0); MEAN CORPUSCULAR HGB CONC 33.3 g/dl (33.0-37.0); MEAN PLATELET VOLUME 9.3 fl (9.6-12.3); MONO # 0.7 10*3/uL (0.1-1.0); MONO % 11.2 % (3.0-9.0); NEUT # 4.6 10*3/uL (2.3-7.9); NEUT % 72.9 % (47.0-73.0); PLATELET COUNT AUTOMATED 301 10*3/uL (130-400); RED BLOOD COUNT 4.38 10*6/uL (4.50-5.90); RED CELL DISTRI WIDTH 12.9 % (0-14.5); WHITE BLOOD COUNT 6.3 10*3/uL (4.8-10.8)
[2020-04-16 12:57] LABS: ALBUMIN 3.3 gm/dl (3.1-4.5); ALKALINE PHOSPHATASE 68 U/L (45-117); BUN 9 mg/dl (7-24); CHLORIDE 110 mmol/L (98-107); CREATININE 0.64 mg/dL (0.70-1.30); POTASSIUM 3.6 mmol/L (3.5-5.1); SGOT/AST 27 IU/L (3-35); SGPT/ALT 18 U/L (12-78); SODIUM 142 mmol/L (136-145); TOTAL PROTEIN 6.6 gm/dL (6.4-8.2)
[2020-04-16] MEDS ORDERED: ZOFRAN4 MG PO ×2 (14:09)
== END 2020-04-16 14:29 | disposition home or self-care (01) ==
LOC: ED 11:43
PROVIDERS: Student in an Organized Health Care Education/Training Program
DX: K52.9 Noninfective gastroenteritis and colitis, unspecified (principal); R11.2 Nausea with vomiting, unspecified; I10 Essential (primary) hypertension; F41.9 Anxiety disorder, unspecified; Z88.6 Allergy status to analgesic agent; Z88.8 Allergy status to other drugs, medicaments and biological substances; Z79.899 Other long term (current) drug therapy; Z90.49 Acquired absence of other specified parts of digestive tract; Z95.5 Presence of coronary angioplasty implant and graft; Z87.891 Personal history of nicotine dependence; Z87.442 Personal history of urinary calculi

== ENCOUNTER 2020-04-17 17:45 | Emergency (ER) | payer MEDICARE ==
[~2020-04-17] VITALS: Ht 193 cm; Wt 108.9 kg
[~2020-04-17 17:45] MED LIST changes: +ZOFRAN4 MG PO
== END 2020-04-17 19:05 | disposition home or self-care (01) ==
LOC: ED 17:45
DX: K52.9 Noninfective gastroenteritis and colitis, unspecified (principal); I10 Essential (primary) hypertension; K21.9 Gastro-esophageal reflux disease without esophagitis; E78.5 Hyperlipidemia, unspecified; Z88.6 Allergy status to analgesic agent; Z79.899 Other long term (current) drug therapy; Z87.891 Personal history of nicotine dependence

== ENCOUNTER 2020-04-19 03:03 | Inpatient (IN) | payer MEDICARE ==
[~2020-04-19] VITALS: Ht 193 cm; Wt 114.4 kg
[2020-04-19 03:14] VITALS: BP 150/87
[2020-04-19 04:21] LABS: BASO % 0.1 % (0.0-1.0); EOS % 0.1 % (1.0-4.0); HEMATOCRIT 41.1 % (42.0-52.0); LYMPH # 0.8 10*3/uL (1.3-4.4); LYMPH % 6.4 % (27.0-41.0); MEAN CELL VOLUME 97.2 fl (80.0-94.0); MEAN CORPUSCULAR HGB 31.9 pg (27.0-31.0); MEAN CORPUSCULAR HGB CONC 32.8 g/dl (33.0-37.0); MEAN PLATELET VOLUME 9.4 fl (9.6-12.3); MONO # 0.8 10*3/uL (0.1-1.0); MONO % 5.9 % (3.0-9.0); PLATELET COUNT AUTOMATED 306 10*3/uL (130-400); RED BLOOD COUNT 4.23 10*6/uL (4.50-5.90); RED CELL DISTRI WIDTH 13.3 % (0-14.5); WHITE BLOOD COUNT 12.7 10*3/uL (4.8-10.8)
[2020-04-19 04:45] LABS: ALBUMIN 3.5 gm/dl (3.1-4.5); ALKALINE PHOSPHATASE 68 U/L (45-117); BUN 12 mg/dl (7-24); CHLORIDE 111 mmol/L (98-107); CREATININE 0.73 mg/dL (0.70-1.30); POTASSIUM 4.2 mmol/L (3.5-5.1); SGOT/AST 21 IU/L (3-35); SGPT/ALT 16 U/L (12-78); SODIUM 141 mmol/L (136-145); TOTAL PROTEIN 6.7 gm/dL (6.4-8.2)
--- NOTE | 2020-04-19 06:29 | NUR ---
PATIENT REFUSING FOR LAB TO STICK FOR SECOND SET OF BLOOD CULTURES AT THIS TIME. DR BENITEZ AWARE.
[2020-04-19] MEDS ORDERED: LEXAPRO10 MG PO (08:02)
[2020-04-19 08:05] VITALS: BP 148/86
[2020-04-19 08:23] LABS: BILIRUBIN Negative (Negative); BLOOD Negative (Negative); CLARITY Clear (Clear); COLOR Yellow (Yellow); GLUCOSE Negative (Negative); KETONE Negative (Negative); LEUKO ESTERASE Negative (Negative); NITRITE Negative (Negative); SPECIFIC GRAVITY 1.025 (1.001-1.030); UROBILINOGEN 0.2 E.U./dl (0.0-1.0)
--- NOTE | 2020-04-19 09:15 | NUR ---
PHARMACY CONTACTED FOR VANC TABLET. PT IS HAVING SOME PAIN WILL BE MEDICATED WITH PRN MEDICATION PER PHYSICIAN ORDERS.
[2020-04-19 09:16] LABS: BACTERIA 1+; CALCIUM OXALATE CRYSTALS 3+; MUCOUS 1+
--- NOTE | 2020-04-19 16:07 | NUR ---
PT RESTING IN BED. NO SACUTE DISTRESS NOTED AT THIS TIME.
--- NOTE | 2020-04-19 18:25 | NUR ---
GOT A BED AT THIS TIME. BUT ROOM UPSTAIRS NEEDS TO BE CLEANED.
--- NOTE | 2020-04-19 19:59 | NUR ---
ASSIGNED ROOM STILL NOT CLEANED. SPOKE TO HOUSE KEEPING. ROOM NEXT TO BE CLEANED. MOOSE IN ER AWARE. WILL NOTIFY SOON ROOM IS READY.
--- NOTE | 2020-04-19 20:45 | NUR ---
PATIENT OUT TO THE NURSES STATION AT THIS TIME SHOUTING AT CRAWLER CRANE OPERATOR STATING HE OVERHEARD NURSES TALKING ABOUT ROOM 9 HAVING A BED UPSTAIRS AND THEN STATES HE HEARD SOMEONE ELSE STATE "I DONT CARE IF ANYONE HAS A BED". THIS RN DID STATE HE HAD A BED AND WAS WAITING FOR CLEAN BED CALL FROM [facility]. NOBODY AT THE NURSES STATION STATED WE DIDNT CARE IF ANYONE HAD A BED OR GOES UPSTAIRS. NURSING GROUND HOST/HOSTESS WAS CALLED TO COME AND SPEAK WITH PATIENT. SUPERVISIOR STATES SHE WILL BE DOWN TO SPEAK WITH PATIENT.
[2020-04-19 21:15] VITALS: BP 132/78
[2020-04-19 21:35] VITALS: BP 132/70
--- NOTE | 2020-04-19 21:35 | NUR ---
Time: 2134 A 59 year old MALE admitted to under services of CABRERA CLEMENTE DO. Pt. arrived via stretcher from ER. Chief complaint: ABDOMINAL PAIN. GÉNESIS ACOSTA
--- NOTE | 2020-04-19 22:13 | NUR ---
MED REC UP TO DATE PER PT RECALL.
[2020-04-20] VITALS: BP 132/70
--- NOTE | 2020-04-20 00:57 | NUR ---
AWARE OF CHANGES MADE TO MED REC.
--- NOTE | 2020-04-20 01:19 | NUR ---
Medicated with Morphine IV for c/o sharp abdominal cramps. Will monitor effectiveness.
--- NOTE | 2020-04-20 02:00 | NUR ---
EARLIER MORPHINE EFFECTIVE PER PT. WILL MONITOR. CALL LIGHT IN REACH.
[2020-04-20 06:31] LABS: BASO # 0.1 10*3/uL (0.0-0.1); BASO % 0.7 % (0.0-1.0); EOS # 0.1 10*3/uL (0.0-0.4); EOS % 1.2 % (1.0-4.0); HEMATOCRIT 40.7 % (42.0-52.0); LYMPH # 2.1 10*3/uL (1.3-4.4); LYMPH % 27.5 % (27.0-41.0); MEAN CELL VOLUME 98.8 fl (80.0-94.0); MEAN CORPUSCULAR HGB 31.6 pg (27.0-31.0); MEAN CORPUSCULAR HGB CONC 31.9 g/dl (33.0-37.0); MEAN PLATELET VOLUME 9.8 fl (9.6-12.3); MONO # 0.7 10*3/uL (0.1-1.0); MONO % 9.7 % (3.0-9.0); NEUT # 4.6 10*3/uL (2.3-7.9); NEUT % 60.5 % (47.0-73.0); PLATELET COUNT AUTOMATED 280 10*3/uL (130-400); RED BLOOD COUNT 4.12 10*6/uL (4.50-5.90); RED CELL DISTRI WIDTH 13.2 % (0-14.5); WHITE BLOOD COUNT 7.6 10*3/uL (4.8-10.8)
--- NOTE | 2020-04-20 06:35 | NUR ---
IV MORPHINE GIVEN FOR C/O LLQ PAIN RATED 8/10. WILL MONITOR EFFECTIVENESS. CALL LIGHT IN REACH.
[2020-04-20 06:39] LABS: BUN 15 mg/dl (7-24); CHLORIDE 108 mmol/L (98-107); CREATININE 0.65 mg/dL (0.70-1.30); POTASSIUM 3.8 mmol/L (3.5-5.1); SODIUM 140 mmol/L (136-145)
--- NOTE | 2020-04-20 07:35 | NUR ---
EARLIER MEDS EFFECTIVE PER PT. WILL MONITOR. CALL LIGHT IN REACH.
--- NOTE | 2020-04-20 07:37 | NUR ---
'S ANSWERING SERVICE CALLED REGARDING CONSULT.
--- NOTE | 2020-04-20 07:42 | NUR ---
RETURNED PHONE CALL. DISCUSSED CONSULT. ALREADY AWARE OF CONSULT. DISCUSSED PATIENT'S STATUS. RECOMMENDS PRIMARY TEAM NOT EDWARD DISCHARGE SHE IS FAMILIAR WITH THIS PT AND KNOWS IT TAKES HIM A FEW DAYS TO RECOVER FROM THESE SYMPTOMS. INFORMATION PASSED ON TO AM SHIFT RN.
[2020-04-20 08:00] VITALS: BP 150/60
--- NOTE | 2020-04-20 09:00 | NUR ---
Bellmaker in to talk to patient. Patient states lives at home alone with his family checking in on him. There are 13 steps in the home. Physician: Dr. Mathieu Xavier Pharmacy: [facility] Home health services: none Patient's level of ADLs: INDEPENDENT Patient has working utilities: yes DME: O2 @ 2L nc prn, nebulizer, O2 supplier [employer] Follow-up physician's appointment after d/c: will be made by the hospitalist nurse director upon discharge Does patient want to access PORTAL?: no Discharge plan discussed with patient. He lives at home alone with his family checking in on him. He states he is independent in his ADLs and ambulation. Discussed home health care services and he declines. CM will continue to follow for any discharge planning needs. When medically stable he will be discharged to home. He states his ex- will provide transportation on discharge. ZACHARY RACHEL
--- NOTE | 2020-04-20 11:02 | NUR ---
MORPHINE GIVEN FOR C/O ABDM PAIN. RATES 8/10 ON PAIN SCALE. WILL MONITOR.
[2020-04-20 12:00] VITALS: BP 140/72
--- NOTE | 2020-04-20 12:05 | NUR ---
MORPHINE HELPING, NO FULLY EFFECTIVE. WILL MONITOR.
--- NOTE | 2020-04-20 15:55 | NUR ---
TORADOL NOT GIVEN. PT REFUSED.
--- NOTE | 2020-04-20 15:57 | NUR ---
MORPHINE GIVEN FOR C/O ABDM PAIN. RATES 8/10 ON PAIN SCALE. WILL MONITOR.
[2020-04-20 16:00] VITALS: BP 140/80
--- NOTE | 2020-04-20 17:00 | NUR ---
MORPHINE HELPING PER PT.
[2020-04-20 20:00] VITALS: BP 119/56
--- NOTE | 2020-04-20 20:45 | NUR ---
PT HAS REPORTED 6/10 PAIN, I WILL TREAT THE PT PER THE MAR. WILL FOLLOW UP
--- NOTE | 2020-04-20 23:15 | NUR ---
24 HR chart check completed.
--- NOTE | 2020-04-20 23:30 | NUR ---
PATIENT STATES THAT HIS PAIN DECREASED A SMALL AMOUNT, NOW REPORTS 4/10 ADRIEL. IS ALREADY ASKING FOR ADDITIONAL MEDS.
[2020-04-21] VITALS: BP 122/52
--- NOTE | 2020-04-21 01:11 | NUR ---
PT CONTINUES TO BE IN PAIN, HE STATES THAT HIS PAIN IS NOW BACK UP TO A 6 OR 7 OUT OF 10. WILL MEDICATE PER THE MAR.
--- NOTE | 2020-04-21 05:03 | NUR ---
PT HAS CALLED EXACTLY ON THE 4 HOUR QI FOR MORE MORPHINE. STATES THAT HIS PAIN IS BACK UP TO 8/10. WILL MEDICATE AND FOLLOW UP.
--- NOTE | 2020-04-21 06:42 | NUR ---
AFTER GIVING THE PATIENT IV PAIN MEDICATION, HE STATES THAT HIS PAIN HAS DECREASED MINIMALLY. WILL CONTINUE TO MONITOR.
[2020-04-21 06:54] LABS: MEAN CELL VOLUME 95.9 fl (80.0-94.0); MEAN CORPUSCULAR HGB 32.1 pg (27.0-31.0); MEAN CORPUSCULAR HGB CONC 33.5 g/dl (33.0-37.0); PLATELET COUNT AUTOMATED 268 10*3/uL (130-400); RED BLOOD COUNT 4.17 10*6/uL (4.50-5.90); RED CELL DISTRI WIDTH 12.7 % (0-14.5); WHITE BLOOD COUNT 12.2 10*3/uL (4.8-10.8)
[2020-04-21 07:17] LABS: BUN 13 mg/dl (7-24); CHLORIDE 106 mmol/L (98-107); CREATININE 0.64 mg/dL (0.70-1.30); POTASSIUM 4.2 mmol/L (3.5-5.1); SODIUM 137 mmol/L (136-145)
[2020-04-21 07:25] LABS: PLATELET SUFFICIENCY NORMAL (NORMAL); TOTAL CELLS COUNTED 100 #CELLS
[2020-04-21 08:00] VITALS: BP 136/60
--- NOTE | 2020-04-21 09:00 | NUR ---
CM in to see patient. No new needs or request at this time. When medically stable he will be discharged to home.
--- NOTE | 2020-04-21 10:00 | NUR ---
Per multidisciplinary discharge planning meeting. Dr. Ross wanted to keep the patient another day. Awaiting Dr. Ross to round later today.
--- NOTE | 2020-04-21 10:53 | NUR ---
PT C/O PAIN TO ABDOMEN, RATED 8/10. MEDICATED WITH MORPHINE ORDERED.
--- NOTE | 2020-04-21 11:46 | NUR ---
PER PT, MORPHINE SLIGHTLY HELPED. SAID PAIN WAS TOLERABLE AT THIS TIME. CALL LIGHT IN REACH.
--- NOTE | 2020-04-21 11:49 | NUR ---
Nutritional Support Services Note: Pt with dx of c-diff colitis. Appetite has now improved pt is eating 100% of regular diet. Encouraged softer/bland foods. Encouraged fluids. Will follow if needed. Shila Church Rdn Ld
[2020-04-21 12:00] VITALS: BP 140/72
--- NOTE | 2020-04-21 14:56 | NUR ---
CALLED PER PT REQUEST OF PAIN MGMT. ANSWERED, SAID HE WOULD PASS IT ON TO . AWAITING CALL BACK.
--- NOTE | 2020-04-21 14:59 | NUR ---
MORPHINE GIVEN FOR CHRONIC BACK PAIN ABDOMINAL PAIN RATED 8/10. CALL LIGHT IN REACH, WILL MONITOR.
--- NOTE | 2020-04-21 15:36 | NUR ---
PER PT, MORPHINE WAS EFFECTIVE. PAIN TO ABDOMEN RATED 4/10. TOLERAABLE. DENIES FURTHER NEEDS AT THIS TIME.
[2020-04-21 16:00] VITALS: BP 140/62
--- NOTE | 2020-04-21 18:47 | NUR ---
MORPHINE GIVEN FOR COMPLAINTS OF LLQ PAIN RATED 7/10. CALL LIGHT IN REACH. WILL MONITOR.
[2020-04-21 20:00] VITALS: BP 138/64
--- NOTE | 2020-04-21 23:23 | NUR ---
PT REPORTED ABD PAIN 8/10, MEDICATED PER THE MAR. WILL FOLLOW UP.
[2020-04-22] VITALS: BP 140/80
--- NOTE | 2020-04-22 00:20 | NUR ---
PRN MEDICATION APPEARS EFFECTIVE, PT SLEEPING
--- NOTE | 2020-04-22 02:24 | NUR ---
24 HR chart check completed.
--- NOTE | 2020-04-22 02:25 | NUR ---
PATIENT REMAINS ASLEEP. NO DISTRESS NOTED. BREATHING IS EASY AND REGULAR ON ROOM AIR. CALL LIGHT WTIHIN REACH, WILL MONITOR
--- NOTE | 2020-04-22 03:33 | NUR ---
PRN MORPHINE GIVEN FOR PT COMPLAINTS OF PAIN IN THE LEFT LOWER ABDOMEN. RATING IT 9/10. CALL LIGHT WTIHIN REACH, WILL MONITOR
--- NOTE | 2020-04-22 04:30 | NUR ---
PRN MEDICATION APPAERS EFFECTIVE, PT SLEEPING
[2020-04-22 08:00] VITALS: BP 134/62
--- NOTE | 2020-04-22 08:13 | NUR ---
PT MEDICATED WITH IV MORPHINE AT THIS TIME PER ORDER FOR COMPLAINTS OF BACK PAIN 12/20. WILL MONITOR FOR EFFECTIVENESS.
--- NOTE | 2020-04-22 09:00 | NUR ---
CM in to see patient. No new needs or request at this time. When medically stable he will be discharged to home.
--- NOTE | 2020-04-22 09:13 | NUR ---
PT'S PAIN IS MUCH BETTER AT THIS TIME AND HE RATES ITS A 2/10. MORHPINE EFFECTIVE
--- NOTE | 2020-04-22 10:00 | NUR ---
Per multidisciplinary discharge planning meeting Dr. Ross would like to keep the patient another day.
[2020-04-22 12:00] VITALS: BP 120/60
--- NOTE | 2020-04-22 12:56 | NUR ---
PT MEDICATED WITH IV MOPRHINE AT THIS TIME FOR COMPLAINTS OF PAIN IN ABD 12/20. WILL MONITOR FOR EFFECTIVENESS.
[2020-04-22 16:00] VITALS: BP 140/80
--- NOTE | 2020-04-22 17:13 | NUR ---
PT MEDICATED WITH MORPHINE AT THIS TIME PER ORDER FOR COMPLAINTS OF 8/10 PAIN IN ABD LLQ. WILL MONITOR FOR EFFECTIVENESS.
--- NOTE | 2020-04-22 18:13 | NUR ---
PER PATIENT, PRN MEDICATION HAS BEEN EFFECTIVE.
--- NOTE | 2020-04-22 19:31 | NUR ---
CHART CHECK COMPLETE.
[2020-04-22 20:00] VITALS: BP 123/54; BP 152/92
--- NOTE | 2020-04-22 22:55 | NUR ---
PATIENT ADMITTED TO ROOM 507-2 FROM AT THIS TIME. NO SIGNS OR SYMPTOMS OF DISTRESS NOTED. RESPIRATIONS REGULAR AND NON-LABORED ON ROOM AIR. WILL CONTINUE TO MONITOR. CALL LIGHT IN REACH.
[2020-04-23] VITALS: BP 152/73
--- NOTE | 2020-04-23 02:35 | NUR ---
PATIENT MEDICATED WITH MORPHINE FOR COMPLAINTS OF BACK AND ABDOMINAL PAIN. WILL MONITOR FOR EFFECTIVENESS.
--- NOTE | 2020-04-23 03:00 | NUR ---
MORPHINE EFFECTIVE. PATIENT STATES HE LIKES TO BE MEDICATED BEFORE HIS PAIN GETS BAD SO IT WORKS BETTER.
--- NOTE | 2020-04-23 06:27 | NUR ---
MEDICATED WITH MORPHINE 3MG FOR COMPLAINTS OF BACK AND ABDOMINAL PAIN. WILL MONITOR FOR EFFECTIVENESS.
[2020-04-23 07:03] LABS: BASO % 0.1 % (0.0-1.0); EOS # 0.1 10*3/uL (0.0-0.4); EOS % 0.3 % (1.0-4.0); HEMATOCRIT 41.1 % (42.0-52.0); LYMPH # 0.8 10*3/uL (1.3-4.4); LYMPH % 4.5 % (27.0-41.0); MEAN CELL VOLUME 96.9 fl (80.0-94.0); MEAN CORPUSCULAR HGB 32.1 pg (27.0-31.0); MEAN CORPUSCULAR HGB CONC 33.1 g/dl (33.0-37.0); MEAN PLATELET VOLUME 9.8 fl (9.6-12.3); MONO % 5.5 % (3.0-9.0); NEUT # 15.4 10*3/uL (2.3-7.9); NEUT % 88.8 % (47.0-73.0); PLATELET COUNT AUTOMATED 304 10*3/uL (130-400); RED BLOOD COUNT 4.24 10*6/uL (4.50-5.90); WHITE BLOOD COUNT 17.4 10*3/uL (4.8-10.8)
[2020-04-23 08:00] VITALS: BP 131/80
[2020-04-23] MEDS ORDERED: VANCOCIN250 M1 PO ×2 (10:00)
--- NOTE | 2020-04-23 10:46 | NUR ---
MORPHINE GIVEN FOR 11/19 PAIN, SEE EMAR.
--- NOTE | 2020-04-23 11:00 | NUR ---
REPORTS MORPHINE EFFECTIVE FOR PAIN CONTROL.
--- NOTE | 2020-04-23 11:08 | NUR ---
Discharge instructions reviewed with patient/family. Patient receptive and verbalizes understanding. Follow-up care arranged. Written instructions given to patient/family. MEDIPORT DEACCESSED AND PRESSURE DRESSING APPLIED. PT IS AWARE THAT THE DRESSING SHOULD REMAIN IN PLACE FOR 24 HOURS. RICK MARSHALL
== END 2020-04-23 11:08 | disposition home or self-care (01) | DRG 872 ==
LOC: ED 03:03 → EDHOLD 06:11 → 4E 18:52 → 5E 04-22 22:56
PROVIDERS: Emergency Medicine; Internal Medicine; Student in an Organized Health Care Education/Training Program; ADMIT Internal Medicine; ATTEND Internal Medicine
DX: A41.9 Sepsis, unspecified organism (principal); A04.72 Enterocolitis due to Clostridium difficile, not specified as recurrent; D53.9 Nutritional anemia, unspecified; E87.8 Other disorders of electrolyte and fluid balance, not elsewhere classified; R73.9 Hyperglycemia, unspecified; I10 Essential (primary) hypertension; E78.5 Hyperlipidemia, unspecified; M54.30 Sciatica, unspecified side; I25.10 Atherosclerotic heart disease of native coronary artery without angina pectoris; K21.9 Gastro-esophageal reflux disease without esophagitis; E86.0 Dehydration; Z95.5 Presence of coronary angioplasty implant and graft; Z90.49 Acquired absence of other specified parts of digestive tract; Z87.891 Personal history of nicotine dependence; Z88.5 Allergy status to narcotic agent; Z88.6 Allergy status to analgesic agent; Z79.899 Other long term (current) drug therapy; Z79.51 Long term (current) use of inhaled steroids

== ENCOUNTER 2020-04-26 14:09 | Emergency (ER) | payer MEDICARE ==
[~2020-04-26] VITALS: Ht 193 cm; Wt 111.1 kg
[~2020-04-26 14:09] MED LIST changes: +LEXAPRO10 MG PO; +VANCOCIN250 M1 PO
[2020-04-26 15:16] LABS: BASO % 0.3 % (0.0-1.0); EOS # 0.1 10*3/uL (0.0-0.4); HEMATOCRIT 46.7 % (42.0-52.0); LYMPH # 1.6 10*3/uL (1.3-4.4); LYMPH % 13.6 % (27.0-41.0); MEAN CELL VOLUME 95.1 fl (80.0-94.0); MEAN CORPUSCULAR HGB CONC 33.6 g/dl (33.0-37.0); MEAN PLATELET VOLUME 9.4 fl (9.6-12.3); MONO # 1.2 10*3/uL (0.1-1.0); MONO % 9.9 % (3.0-9.0); NEUT # 8.9 10*3/uL (2.3-7.9); NEUT % 74.3 % (47.0-73.0); PLATELET COUNT AUTOMATED 268 10*3/uL (130-400); RED BLOOD COUNT 4.91 10*6/uL (4.50-5.90); RED CELL DISTRI WIDTH 13.2 % (0-14.5)
[2020-04-26 15:31] LABS: ALBUMIN 3.2 gm/dl (3.1-4.5); ALKALINE PHOSPHATASE 60 U/L (45-117); BUN 15 mg/dl (7-24); CHLORIDE 105 mmol/L (98-107); CREATININE 0.69 mg/dL (0.70-1.30); LIPASE 97 U/L (73-393); POTASSIUM 3.6 mmol/L (3.5-5.1); SGOT/AST 27 IU/L (3-35); SGPT/ALT 23 U/L (12-78); SODIUM 136 mmol/L (136-145); TOTAL PROTEIN 6.6 gm/dL (6.4-8.2)
[2020-04-26] MEDS ORDERED: ZOFRAN4 MG PO (17:29)
== END 2020-04-26 17:31 | disposition home or self-care (01) ==
LOC: ED 14:09
PROVIDERS: Physician Assistant
DX: K52.9 Noninfective gastroenteritis and colitis, unspecified (principal); Z88.6 Allergy status to analgesic agent; Z79.899 Other long term (current) drug therapy; Z87.891 Personal history of nicotine dependence

== ENCOUNTER 2020-04-28 00:14 | Emergency (ER) | payer MEDICARE ==
[2020-04-28 01:04] LABS: BASO % 0.1 % (0.0-1.0); EOS # 0.2 10*3/uL (0.0-0.4); EOS % 2.3 % (1.0-4.0); HEMATOCRIT 45.5 % (42.0-52.0); LYMPH # 1.5 10*3/uL (1.3-4.4); MEAN CELL VOLUME 96.4 fl (80.0-94.0); MEAN CORPUSCULAR HGB 31.6 pg (27.0-31.0); MEAN CORPUSCULAR HGB CONC 32.7 g/dl (33.0-37.0); MEAN PLATELET VOLUME 9.6 fl (9.6-12.3); MONO # 0.9 10*3/uL (0.1-1.0); MONO % 11.1 % (3.0-9.0); NEUT # 5.5 10*3/uL (2.3-7.9); NEUT % 67.8 % (47.0-73.0); PLATELET COUNT AUTOMATED 266 10*3/uL (130-400); RED BLOOD COUNT 4.72 10*6/uL (4.50-5.90); RED CELL DISTRI WIDTH 13.3 % (0-14.5); WHITE BLOOD COUNT 8.1 10*3/uL (4.8-10.8)
[2020-04-28 01:20] LABS: ALBUMIN 3.1 gm/dl (3.1-4.5); ALKALINE PHOSPHATASE 61 U/L (45-117); BUN 12 mg/dl (7-24); CHLORIDE 109 mmol/L (98-107); CREATININE 0.69 mg/dL (0.70-1.30); POTASSIUM 3.8 mmol/L (3.5-5.1); SGOT/AST 24 IU/L (3-35); SGPT/ALT 21 U/L (12-78); SODIUM 140 mmol/L (136-145); TOTAL PROTEIN 6.3 gm/dL (6.4-8.2)
== END 2020-04-28 02:02 | disposition home or self-care (01) ==
LOC: ED 00:14
PROVIDERS: Internal Medicine
DX: A04.72 Enterocolitis due to Clostridium difficile, not specified as recurrent (principal); R10.9 Unspecified abdominal pain; Z88.8 Allergy status to other drugs, medicaments and biological substances; Z79.899 Other long term (current) drug therapy; Z90.49 Acquired absence of other specified parts of digestive tract

== ENCOUNTER 2020-05-06 22:44 | Emergency (ER) | payer MEDICARE ==
[~2020-05-06] VITALS: Ht 193 cm; Wt 111.1 kg
== END 2020-05-06 23:54 | disposition home or self-care (01) ==
LOC: ED 22:44
DX: S20.212A Contusion of left front wall of thorax, initial encounter (principal); Z88.6 Allergy status to analgesic agent; Z79.899 Other long term (current) drug therapy; Z87.891 Personal history of nicotine dependence; W16.212A Fall in (into) filled bathtub causing other injury, initial encounter; Y93.89 Activity, other specified; Y92.89 Other specified places as the place of occurrence of the external cause; Y99.8 Other external cause status

== ENCOUNTER 2020-05-14 11:36 | Inpatient (IN) | payer MEDICARE ==
[~2020-05-14] VITALS: Ht 193 cm; Wt 113.2 kg
[2020-05-14] VITALS (8 sets, daily range): BP systolic 149–163; BP diastolic 73–85
--- NOTE | 2020-05-14 12:20 | NUR ---
Breathing treatment down at this time.Pt placed on room air at this time and wheezing is not hurt after treatment,
--- NOTE | 2020-05-14 12:26 | NUR ---
Pt to xray at this time.
--- NOTE | 2020-05-14 12:31 | NUR ---
Pt back from xray at this time.
--- NOTE | 2020-05-14 13:44 | NUR ---
Pt appears to be resting at this time after pain medication.
[2020-05-14 14:05] LABS: BASO % 0.4 % (0.0-1.0); EOS # 0.1 10*3/uL (0.0-0.4); EOS % 1.6 % (1.0-4.0); HEMATOCRIT 41.7 % (42.0-52.0); LYMPH # 0.6 10*3/uL (1.3-4.4); LYMPH % 11.8 % (27.0-41.0); MEAN CELL VOLUME 95.9 fl (80.0-94.0); MEAN CORPUSCULAR HGB 31.7 pg (27.0-31.0); MEAN CORPUSCULAR HGB CONC 33.1 g/dl (33.0-37.0); MEAN PLATELET VOLUME 9.2 fl (9.6-12.3); MONO # 0.2 10*3/uL (0.1-1.0); MONO % 4.2 % (3.0-9.0); NEUT # 4.1 10*3/uL (2.3-7.9); NEUT % 81.8 % (47.0-73.0); PLATELET COUNT AUTOMATED 274 10*3/uL (130-400); RED BLOOD COUNT 4.35 10*6/uL (4.50-5.90); RED CELL DISTRI WIDTH 12.7 % (0-14.5)
[2020-05-14 14:18] LABS: ACT PARTIAL THROMBO TIME 29.3 SECONDS (20.0-32.1)
[2020-05-14 14:23] LABS: ALBUMIN 3.3 gm/dl (3.1-4.5); ALKALINE PHOSPHATASE 67 U/L (45-117); BUN 10 mg/dl (7-24); CHLORIDE 108 mmol/L (98-107); CREATININE 0.55 mg/dL (0.70-1.30); POTASSIUM 3.3 mmol/L (3.5-5.1); SGOT/AST 31 IU/L (3-35); SGPT/ALT 20 U/L (12-78); SODIUM 142 mmol/L (136-145); TOTAL PROTEIN 6.4 gm/dL (6.4-8.2)
[2020-05-14 14:26] LABS: TROPONIN I < 0.015 ng/ml (<0.045)
--- NOTE | 2020-05-14 14:28 | NUR ---
Pt refused blood gas at this time.
--- NOTE | 2020-05-14 14:30 | NUR ---
Pt is alert and orientated at this time.Pt denies open wounds at this time and some old brusing noted on left flank.
--- NOTE | 2020-05-14 14:35 | NUR ---
PT. REFUSED TO HAVE ABG DRAWN. EXPLAINED RATIONAL FOR TEST. PT. CONTINUES TO REFUSE. RN NOTIFIED.
--- NOTE | 2020-05-14 14:40 | NUR ---
Lisa promotions assistant aware of pt refusing blood gas at this time.
--- NOTE | 2020-05-14 14:57 | NUR ---
In to see pt at this time.Pt resting comfortable in bed at this time.
--- NOTE | 2020-05-14 15:06 | NUR ---
Sbar faxed at this time.
--- NOTE | 2020-05-14 15:09 | NUR ---
Ok to bring pt to room at this time,
--- NOTE | 2020-05-14 15:30 | NUR ---
MSTime: 1530 A 59 year old MALE admitted to 5E under services of EAMON ALLEN DO. Pt. arrived via ambulatory from ER. Chief complaint: SHORTNESS OF BREATH. PAT REZA
--- NOTE | 2020-05-14 15:40 | NUR ---
IN TO SEE PATIENT.
--- NOTE | 2020-05-14 16:11 | NUR ---
PT MEDICATED WITH IV MORPHINE PER PRN ORDER FOR C/O LEFT RIB PAIN. RATES PAIN 10/10. WILL MONITOR EFFECTIVENESS.
[2020-05-14] MEDS ORDERED: VANCOCIN250 M1 PO (17:19)
--- NOTE | 2020-05-14 18:24 | NUR ---
1 TIME DOSE OF OXY 10MG GIVEN PER ORDER FOR C/O LEFT SIDED RIB & BACK PAIN. RATES PAIN 12/20. CHRONIC PAIN PER PT. WILL MONITOR EFFECTIVENESS.
--- NOTE | 2020-05-14 19:00 | NUR ---
ARRIVED ON SHIFT REPORT RECEIVED FROM OFF GOING NURSE, ASSUMED CARE OF PATIENT.
--- NOTE | 2020-05-14 19:15 | NUR ---
INTRODUCED SELF TO PATIENT, BED IN LOW POSITION WITH WHEEL LOCKS ENGAGED, SIDE RAILS UP X2 FOR TURNING AND REPOSITIONING, CALL LIGHT WITHIN REACH, NO NEEDS VOICED AT THIS TIME, WHITE BOARD UPDATED.
--- NOTE | 2020-05-14 20:42 | NUR ---
PATIENT C/O OF LEFT FLANK PAIN RATES 7/10 AND CHRONIC BACK PAIN 7/10 MEDICATED WITHJ MORPHINE ORDERED PRN FOR SEVER PAIN.
--- NOTE | 2020-05-14 21:42 | NUR ---
PATIENT REPORTS MINIMAL RELIEF FROM MORPHINE GIVEN X 1 HOUR AGO CURRENT PAIN LEVEL 5/10 PER PATIENT HE TAKES OXYCODONE 10MG Q6H AT HOME ADVISE DR. JOSHI, SHE VERSED SHE WILL LOOK AT PATIENTS HOME MEDICATIONS.
[2020-05-15] VITALS: BP 148/72
--- NOTE | 2020-05-15 03:11 | NUR ---
24 HR chart check completed.
[2020-05-15 06:31] LABS: BASO % 0.1 % (0.0-1.0); HEMATOCRIT 37.6 % (42.0-52.0); LYMPH # 0.5 10*3/uL (1.3-4.4); LYMPH % 5.5 % (27.0-41.0); MEAN CELL VOLUME 96.7 fl (80.0-94.0); MEAN CORPUSCULAR HGB 32.1 pg (27.0-31.0); MEAN CORPUSCULAR HGB CONC 33.2 g/dl (33.0-37.0); MEAN PLATELET VOLUME 9.4 fl (9.6-12.3); MONO # 0.4 10*3/uL (0.1-1.0); MONO % 4.2 % (3.0-9.0); NEUT # 8.5 10*3/uL (2.3-7.9); NEUT % 89.8 % (47.0-73.0); PLATELET COUNT AUTOMATED 270 10*3/uL (130-400); RED BLOOD COUNT 3.89 10*6/uL (4.50-5.90); RED CELL DISTRI WIDTH 12.9 % (0-14.5); WHITE BLOOD COUNT 9.5 10*3/uL (4.8-10.8)
[2020-05-15 06:51] LABS: ALBUMIN 3.1 gm/dl (3.1-4.5); ALKALINE PHOSPHATASE 63 U/L (45-117); BUN 11 mg/dl (7-24); CHLORIDE 108 mmol/L (98-107); CHOLESTEROL 176 mg/dL (<200); CREATININE 0.61 mg/dL (0.70-1.30); HDL CHOLESTEROL 53 mg/dl (40-60); LDL CHOLESTEROL 112 mg/dL (9-159); POTASSIUM 3.7 mmol/L (3.5-5.1); SGOT/AST 25 IU/L (3-35); SGPT/ALT 18 U/L (12-78); SODIUM 141 mmol/L (136-145); TOTAL PROTEIN 5.9 gm/dL (6.4-8.2); TRIGLYCERIDES 53 mg/dl (<150); VLDL CHOLESTEROL 11 mg/dL (6-40)
[2020-05-15 06:55] LABS: THYROID STIM HORMONE (HS) 0.076 uIU/ml (0.358-4.75)
[2020-05-15 08:00] VITALS: BP 153/72
[2020-05-15 12:00] VITALS: BP 155/81
[2020-05-15 16:00] VITALS: BP 156/72
[2020-05-15 20:00] VITALS: BP 148/65
--- NOTE | 2020-05-15 20:08 | NUR ---
FOUND OUT OF ISOLATION ROOM SITTING IN CHAIR. ASKED PT TO GO BACK ROOM FOR ISOLATION PURPOSES. IMMEDIATELY BECAME ANGRY AND STATES THAT NO ONE ASKED HIM TO GO BACK TO HIS ROOM WHILE HE WAS WALKING THE HALLS TODAY. INFORMED HIM THAT WE ARE ACTIVELY TREATING HIM FOR C-DIFF AND THIS IS HOSPITAL POLICY, HE IS TO REMAIN IN ISOLATION PRECAUTIONS FOR STAFF AND PATIENT SAFETY. STILL ANGRY AND YELLING BUT WALKED BACK TO ROOM. CALL LIGHT IN REACH.
--- NOTE | 2020-05-15 21:02 | NUR ---
SLEEPING, NO SXS OF DISTRESS NOTED. CALL LIGHT IN REACH. WILL MONITOR. REMAINS IN ROOM, ISOLATION PRACTICES MAINTAINED.
--- NOTE | 2020-05-15 22:06 | NUR ---
AWAKE, REQUESTING SOMETHING FOR RIB PAIN. INFORMED HE HAS TORADOL ON AND HIS OXY IR IS DUE AGAIN AROUND MIDNIGHT. STATES HE DOES NOT WANT THE TORADOL, IT DOESNT WORK. ASKED IF I WOULD CALL THE DOC FOR SOMETHING. CALLED PER PT REQUEST. SAID HE WOULD LOOK AT THE CHART.
--- NOTE | 2020-05-15 22:16 | NUR ---
MORPHINE GIVEN PER ORDERS. WILL MONITOR FOR EFFECTIVENESS. CALL LIGHT IN REACH, ISOLATION PRECAUTIONS MAINTAINED.
--- NOTE | 2020-05-15 23:02 | NUR ---
PER PT, MORPHINE WAS SOMEWHAT EFFECTIVE FOR EARLIER COMPLAINTS OF BACK PAIN. REQUESTED TO BRING OXY IR TO HIM SOON HE WAS ABLE TO HAVE IT AGAIN. NO FURTHER COMPLAINTS AT THIS TIME. CALL LIGHT IN REACH.
[2020-05-16] VITALS: BP 177/87
--- NOTE | 2020-05-16 01:47 | NUR ---
24HR CHART CHECK COMPLETED
[2020-05-16 08:00] VITALS: BP 172/93
--- NOTE | 2020-05-16 11:27 | NUR ---
FLEXERIL GIVEN FOR C/O BACK PAIN. RATES 10/10 ON PAIN SCALE. WILL MONITOR.
--- NOTE | 2020-05-16 11:58 | NUR ---
Sales Commissions Analyst in to talk to patient. Patient states lives at home with cristelane. There are 2 steps in the home. Physician: anna thornton [facility] Home health services: Patient's level of ADLs: INDEPENDENT Patient has working utilities: all working DME: none Follow-up physician's appointment after d/c: will be made by hospitalist nurse director upon discharge Does patient want to access PORTAL?: no Discharge plan discussed with patient, he lives at home alone, he has home oxygen prn, a nebulizer from [facility]. he states he will return home when discharged and denies any home needs, case management will follow. KELTON GARG
[2020-05-16 12:00] VITALS: BP 174/80
--- NOTE | 2020-05-16 12:30 | NUR ---
FLEXERIL NOT EFFECTIVE PER PT.
[2020-05-16 16:00] VITALS: BP 159/75
[2020-05-16 20:00] VITALS: BP 140/67
[2020-05-17] VITALS: BP 153/76
[2020-05-17 08:00] VITALS: BP 157/76
--- NOTE | 2020-05-17 09:00 | NUR ---
case management visits with patient regarding discharge plan, discussed with him a short term long term for 5 days of rehab and 24 hour care prior to returning home, he was receptive to this, given choice of facilities in [facility] and [place] he stated he would like to go to somewhere in [place], whoever had a bed and would accept him, social services analyst will send referral. case management will follow
--- NOTE | 2020-05-17 09:20 | NUR ---
Occupational Therapy evaluation completed on five with full evaluation to follow. Recommend occupational therapy per plan of care and SNF upon discharge. Thank you for this referral. Prerna Cabrera OTR/L
--- NOTE | 2020-05-17 09:57 | NUR ---
PHYSICAL THERAPY Physical therapy evaluation completed. Full details and evaluation to follow. Moderate complexity skilled PT evaluation performed [id number]. PT will work on strength, balance, transfers, gait, AD usage and safety per POC. Recommend SNF at discharge. Neela Khan PT DPT
--- NOTE | 2020-05-17 11:46 | NUR ---
PER DOG WALKER KELTON GARG, PATIENT WOULD NOW LIKE TO BE REFERRED TO SNF AND DOES NOT HAVEA PREFERENCE. CHILDCARE CENTER DIRECTOR FAXED REFERRAL TO [facility] FOR REVIEW.
[2020-05-17 12:00] VITALS: BP 143/82
--- NOTE | 2020-05-17 15:17 | NUR ---
PATIENT HAS BEEN ACCEPTED TO [facility]. WILL NEED COVID RESULTS BEFORE ADMITTING TO [facility].
--- NOTE | 2020-05-17 15:17 | NUR ---
MORPHINE AND FLXERIL GIVEN FOR C/O SEVERE BACK PAIN. RATES 10/10 ON PAIN SCALE. WILL MONITOR.
[2020-05-17 16:00] VITALS: BP 149/67
--- NOTE | 2020-05-17 16:20 | NUR ---
FLEXERIL AND MORPHINE HELPING. NOT FULLY EFFECTIVE PER PT. WILL MONITOR.
[2020-05-17 20:00] VITALS: BP 152/70
[2020-05-18] VITALS: BP 148/67
[2020-05-18 00:30] VITALS: BP 165/89
--- NOTE | 2020-05-18 00:30 | NUR ---
GABE PICKETT CAME TO ME AND STATED PATIENT SAID HE TRIPPED OVER HIS SHEET AND FELL IN HIS ROOM AND HURT HIS LEFT RIB AREA WHERE HE HURT IT BEFORE. SAID HIS LEG GAVE OUT ALSO. NEW ORDER FOR X-RAY OF LEFT RIB AREA. DR. ADAIR AND METEOROLOGIST IN CHARGE NOTIFIED.
--- NOTE | 2020-05-18 00:57 | NUR ---
PATIENT MEDICATED WITH TORADOL AND FLEXERIL FOR LEFT RIB PAIN. WILL CONTINUE TO MONITOR.
[2020-05-18 08:00] VITALS: BP 132/57
--- NOTE | 2020-05-18 08:30 | NUR ---
Patient resting quietly with no c/o discomfort. Respirations easy and regular. Isolation precauons maintained. Vital signs stable. No overt distress. KATIE MATT R
--- NOTE | 2020-05-18 09:00 | NUR ---
OT NOTE Pt was seen this A.M. 1:1 for 15 minute OT session. Upon arrival pt was supine in bed. Pt identified by name and and had complaints of 8/10 low back and LLE pain. Pt transferred supine to sit EOB with supervision. While sitting EOB pt gathered items from floor level and donned pants, socks, and gown with supervision. Sit to stand completed from bed level with SBA and use of w/w followed by functional mobility into the bathroom with SBA and use of w/w. There he transferred on/off standard commode with SBA and use of grab bar followed by standing sink side while washing his hands with SBA. Functional mobility completed back to the EOB with SBA and use of w/w. There his dynamic standing balance was challenged while weight shifting. crossing midline, and reaching over all planes. Pt was able to maintain F+/G- standing balance throughout. Pt was left sitting upright on the EOB with call light in hand, tray table in place, and bed alarm activated for safety. Continue with POC as able. SALLY Linda/Radha
--- NOTE | 2020-05-18 09:00 | NUR ---
case management visits with patient, educated him he has been accepted by [facility] and will be able to go when discharged. patient stated he will have someone bring him clothes and will have someone transport him to [facility]. case management will follow
--- NOTE | 2020-05-18 09:04 | NUR ---
CHILD DEVELOPMENT ASSISTANT COMPLETED HENS.
--- NOTE | 2020-05-18 10:20 | NUR ---
Ok for rx per RN. Pt seated EOB and agrees to therapy. States his L sciatica is his biggest problem. States L LE gave out on him casuing him to fall last night and he did report this to nursing. Gait with FWW x 30ft to bathroom amd back to bed no assist needed. Gait x 80 ft with FWW and CGA due to L LE appearing weak. Pt education on supine piriformis stretch 3 x 20 sec hold to decrease L LE pain. Noted tightness with attempted stretching. Pt supine in bed and all needs met. Jason Bynum, CHILDCARE PROVIDER
[2020-05-18 12:00] VITALS: BP 124/92
[2020-05-18] MEDS ORDERED: AMBIEN10 M1 PO (13:44)
[2020-05-18] MEDS ORDERED: PREDNISONE10 MG PO (13:44)
[2020-05-18] MEDS ORDERED: OXYCODONE HCL10 M1 PO (13:46)
--- NOTE | 2020-05-18 14:35 | NUR ---
Discharge instructions reviewed with patient/family. Patient receptive and verbalizes understanding. Follow-up care arranged. Written instructions given to patient/family. KATIE MATT
--- NOTE | 2020-05-18 14:55 | NUR ---
REPORT CALLED TO [facility].
--- NOTE | 2020-05-18 15:58 | NUR ---
OCCUPATIONAL THERAPY CO-SIGN I approve of the Occupational Therapy notes written above. Prerna Cabrera, OTR/L
--- NOTE | 2020-05-18 15:58 | NUR ---
PHYSICAL THERAPY CO-SIGN I approve of the Physical Therapy notes written above. ZACHARY JACKSON PT, DPT
--- NOTE | 2020-05-19 08:53 | NUR ---
JALEEL RECEIVED THE FOLLOWING MESSAGE FROM [facility]: "THIS PATIENT DROVE HIMSELF HERE AND IS WALKING INDEPENDENTLY, HE WON'T BE HERE LONG".
== END 2020-05-18 14:55 | disposition other institution (70) | DRG 202 ==
LOC: ED 11:36 → EDHOLD 14:39 → 5E 14:39
PROVIDERS: Nurse Practitioner Family; Student in an Organized Health Care Education/Training Program; ADMIT Internal Medicine; ATTEND Internal Medicine
DX: J45.901 Unspecified asthma with (acute) exacerbation (principal); J44.1 Chronic obstructive pulmonary disease with (acute) exacerbation; A04.72 Enterocolitis due to Clostridium difficile, not specified as recurrent; E87.6 Hypokalemia; D64.9 Anemia, unspecified; I25.10 Atherosclerotic heart disease of native coronary artery without angina pectoris; K21.9 Gastro-esophageal reflux disease without esophagitis; R73.9 Hyperglycemia, unspecified; E87.8 Other disorders of electrolyte and fluid balance, not elsewhere classified; I10 Essential (primary) hypertension; E78.5 Hyperlipidemia, unspecified; Z20.822 Contact with and (suspected) exposure to COVID-19; K52.9 Noninfective gastroenteritis and colitis, unspecified; Z90.49 Acquired absence of other specified parts of digestive tract; Z95.5 Presence of coronary angioplasty implant and graft; Z87.891 Personal history of nicotine dependence; Z82.0 Family history of epilepsy and other diseases of the nervous system; Z88.5 Allergy status to narcotic agent; Z79.51 Long term (current) use of inhaled steroids; Z79.1 Long term (current) use of non-steroidal anti-inflammatories (NSAID); Z88.6 Allergy status to analgesic agent

== ENCOUNTER 2020-06-09 04:34 | Emergency (ER) | payer MEDICARE ==
[~2020-06-09] VITALS: Ht 190.5 cm; Wt 90.7 kg
[~2020-06-09 04:34] MED LIST changes: +AMBIEN10 M1 PO; +PREDNISONE10 MG PO
== END 2020-06-09 07:01 | disposition left against medical advice (07) ==
LOC: ED 04:34
DX: J44.9 Chronic obstructive pulmonary disease, unspecified (principal); G89.29 Other chronic pain; E78.00 Pure hypercholesterolemia, unspecified; I25.10 Atherosclerotic heart disease of native coronary artery without angina pectoris; I10 Essential (primary) hypertension; K21.9 Gastro-esophageal reflux disease without esophagitis; Z87.891 Personal history of nicotine dependence; Z98.890 Other specified postprocedural states; Z90.49 Acquired absence of other specified parts of digestive tract; Z79.899 Other long term (current) drug therapy; Z88.6 Allergy status to analgesic agent; Z88.5 Allergy status to narcotic agent

== ENCOUNTER 2020-06-23 07:44 | Emergency (ER) | payer MEDICARE ==
[~2020-06-23] VITALS: Ht 190.5 cm; Wt 112.5 kg
[2020-06-23 09:12] LABS: BASO % 0.4 % (0.0-1.0); EOS # 0.1 10*3/uL (0.0-0.4); EOS % 1.4 % (1.0-4.0); HEMATOCRIT 47.5 % (42.0-52.0); LYMPH # 0.9 10*3/uL (1.3-4.4); LYMPH % 12.2 % (27.0-41.0); MEAN CELL VOLUME 94.6 fl (80.0-94.0); MEAN CORPUSCULAR HGB 31.9 pg (27.0-31.0); MEAN CORPUSCULAR HGB CONC 33.7 g/dl (33.0-37.0); MEAN PLATELET VOLUME 9.3 fl (9.6-12.3); MONO # 0.6 10*3/uL (0.1-1.0); MONO % 8.3 % (3.0-9.0); NEUT # 5.7 10*3/uL (2.3-7.9); NEUT % 77.3 % (47.0-73.0); PLATELET COUNT AUTOMATED 374 10*3/uL (130-400); RED BLOOD COUNT 5.02 10*6/uL (4.50-5.90); RED CELL DISTRI WIDTH 13.2 % (0-14.5); WHITE BLOOD COUNT 7.4 10*3/uL (4.8-10.8)
[2020-06-23 09:26] LABS: ALBUMIN 3.7 gm/dl (3.1-4.5); ALKALINE PHOSPHATASE 71 U/L (45-117); BUN 8 mg/dl (7-24); CHLORIDE 110 mmol/L (98-107); LIPASE 78 U/L (73-393); POTASSIUM 3.9 mmol/L (3.5-5.1); SGOT/AST 32 IU/L (3-35); SGPT/ALT 25 U/L (12-78); SODIUM 140 mmol/L (136-145)
[2020-06-23 10:41] LABS: BILIRUBIN Negative (Negative); BLOOD 3+ (Negative); CLARITY Clear (Clear); COLOR Yellow (Yellow); GLUCOSE Negative (Negative); KETONE 3+ (Negative); LEUKO ESTERASE Negative (Negative); NITRITE Negative (Negative)
[2020-06-23 10:58] LABS: BACTERIA 1+; MUCOUS 3+; RBC TNTC rbc/hpf (0-2)
[2020-06-23] MEDS ORDERED: VANCOCIN125 M1 PO (11:19)
[2020-06-23] MEDS ORDERED: XIFAXAN200 M1 PO (11:19)
== END 2020-06-23 11:30 | disposition home or self-care (01) ==
LOC: ED 07:44
PROVIDERS: Emergency Medicine
DX: A04.71 Enterocolitis due to Clostridium difficile, recurrent (principal); I25.10 Atherosclerotic heart disease of native coronary artery without angina pectoris; K21.9 Gastro-esophageal reflux disease without esophagitis; E78.5 Hyperlipidemia, unspecified; Z88.8 Allergy status to other drugs, medicaments and biological substances; Z79.899 Other long term (current) drug therapy

== ENCOUNTER 2020-06-26 16:12 | Inpatient (IN) | payer MEDICARE ==
[~2020-06-26] VITALS: Ht 193 cm; Wt 119.5 kg
[~2020-06-26 16:12] MED LIST changes: +VANCOCIN125 M1 PO; +XIFAXAN200 M1 PO
[2020-06-26 16:20] VITALS: BP 155/95
[2020-06-26 17:09] LABS: BASO % 0.5 % (0.0-1.0); EOS # 0.1 10*3/uL (0.0-0.4); EOS % 1.7 % (1.0-4.0); HEMATOCRIT 43.3 % (42.0-52.0); LYMPH # 1.3 10*3/uL (1.3-4.4); LYMPH % 21.7 % (27.0-41.0); MEAN CELL VOLUME 95.8 fl (80.0-94.0); MEAN CORPUSCULAR HGB 31.6 pg (27.0-31.0); MEAN PLATELET VOLUME 9.3 fl (9.6-12.3); MONO # 0.8 10*3/uL (0.1-1.0); MONO % 13.6 % (3.0-9.0); NEUT # 3.8 10*3/uL (2.3-7.9); NEUT % 62.3 % (47.0-73.0); PLATELET COUNT AUTOMATED 321 10*3/uL (130-400); RED BLOOD COUNT 4.52 10*6/uL (4.50-5.90); RED CELL DISTRI WIDTH 13.2 % (0-14.5)
[2020-06-26 17:23] LABS: ALBUMIN 3.4 gm/dl (3.1-4.5); ALKALINE PHOSPHATASE 63 U/L (45-117); BUN 9 mg/dl (7-24); CHLORIDE 110 mmol/L (98-107); CREATININE 0.69 mg/dL (0.70-1.30); POTASSIUM 3.9 mmol/L (3.5-5.1); SGOT/AST 22 IU/L (3-35); SGPT/ALT 21 U/L (12-78); SODIUM 141 mmol/L (136-145); TOTAL PROTEIN 6.7 gm/dL (6.4-8.2)
[2020-06-26] MEDS ORDERED: PANTOPRAZOLE SO40 MG PO (19:00)
[2020-06-26 20:41] VITALS: BP 148/84
[2020-06-26 22:00] VITALS: BP 160/92
[2020-06-27] VITALS: BP 160/58
[2020-06-27 06:41] LABS: BASO % 0.8 % (0.0-1.0); EOS # 0.1 10*3/uL (0.0-0.4); EOS % 2.5 % (1.0-4.0); HEMATOCRIT 41.5 % (42.0-52.0); LYMPH # 1.3 10*3/uL (1.3-4.4); LYMPH % 25.1 % (27.0-41.0); MEAN CELL VOLUME 96.3 fl (80.0-94.0); MEAN CORPUSCULAR HGB CONC 33.3 g/dl (33.0-37.0); MEAN PLATELET VOLUME 9.5 fl (9.6-12.3); MONO # 0.8 10*3/uL (0.1-1.0); MONO % 15.8 % (3.0-9.0); NEUT # 2.9 10*3/uL (2.3-7.9); NEUT % 55.6 % (47.0-73.0); PLATELET COUNT AUTOMATED 289 10*3/uL (130-400); RED BLOOD COUNT 4.31 10*6/uL (4.50-5.90); RED CELL DISTRI WIDTH 13.1 % (0-14.5); WHITE BLOOD COUNT 5.1 10*3/uL (4.8-10.8)
[2020-06-27 06:53] LABS: ACT PARTIAL THROMBO TIME 26.2 SECONDS (20.0-32.1)
[2020-06-27 07:12] LABS: ALBUMIN 3.1 gm/dl (3.1-4.5); ALKALINE PHOSPHATASE 56 U/L (45-117); BUN 10 mg/dl (7-24); CHLORIDE 108 mmol/L (98-107); CREATININE 0.59 mg/dL (0.70-1.30); POTASSIUM 3.9 mmol/L (3.5-5.1); SGOT/AST 21 IU/L (3-35); SGPT/ALT 20 U/L (12-78); SODIUM 141 mmol/L (136-145); TOTAL PROTEIN 5.9 gm/dL (6.4-8.2)
[2020-06-27 07:17] LABS: THYROID STIM HORMONE (HS) 0.971 uIU/ml (0.358-4.75)
[2020-06-27 08:00] VITALS: BP 150/76
[2020-06-27 09:02] LABS: VITAMIN D, 25-HYDROXY 19.2 ng/mL (30-100)
[2020-06-27 12:00] VITALS: BP 154/84
[2020-06-27 16:00] VITALS: BP 143/85
[2020-06-27 20:00] VITALS: BP 144/73
[2020-06-28] VITALS: BP 131/79
[2020-06-28 06:36] LABS: BASO % 0.4 % (0.0-1.0); EOS # 0.2 10*3/uL (0.0-0.4); EOS % 4.5 % (1.0-4.0); HEMATOCRIT 40.7 % (42.0-52.0); LYMPH # 1.2 10*3/uL (1.3-4.4); LYMPH % 23.3 % (27.0-41.0); MEAN CELL VOLUME 96.9 fl (80.0-94.0); MEAN CORPUSCULAR HGB 32.1 pg (27.0-31.0); MEAN CORPUSCULAR HGB CONC 33.2 g/dl (33.0-37.0); MEAN PLATELET VOLUME 9.4 fl (9.6-12.3); MONO # 0.7 10*3/uL (0.1-1.0); MONO % 14.6 % (3.0-9.0); NEUT # 2.8 10*3/uL (2.3-7.9); NEUT % 56.8 % (47.0-73.0); PLATELET COUNT AUTOMATED 264 10*3/uL (130-400); WHITE BLOOD COUNT 4.9 10*3/uL (4.8-10.8)
[2020-06-28 06:51] LABS: BUN 9 mg/dl (7-24); CHLORIDE 106 mmol/L (98-107); CREATININE 0.61 mg/dL (0.70-1.30); POTASSIUM 4.1 mmol/L (3.5-5.1); SODIUM 139 mmol/L (136-145)
[2020-06-28 08:00] VITALS: BP 146/73
[2020-06-28 12:00] VITALS: BP 130/67
[2020-06-28 16:00] VITALS: BP 147/69
[2020-06-28 20:02] VITALS: BP 143/79
[2020-06-29] VITALS: BP 140/70
[2020-06-29 04:00] VITALS: BP 138/74
[2020-06-29 06:20] LABS: BASO % 0.4 % (0.0-1.0); EOS # 0.3 10*3/uL (0.0-0.4); EOS % 5.3 % (1.0-4.0); HEMATOCRIT 41.1 % (42.0-52.0); LYMPH # 1.3 10*3/uL (1.3-4.4); LYMPH % 22.1 % (27.0-41.0); MEAN CELL VOLUME 96.9 fl (80.0-94.0); MEAN CORPUSCULAR HGB 31.6 pg (27.0-31.0); MEAN CORPUSCULAR HGB CONC 32.6 g/dl (33.0-37.0); MEAN PLATELET VOLUME 9.5 fl (9.6-12.3); MONO # 0.7 10*3/uL (0.1-1.0); MONO % 11.7 % (3.0-9.0); NEUT # 3.4 10*3/uL (2.3-7.9); NEUT % 60.1 % (47.0-73.0); PLATELET COUNT AUTOMATED 259 10*3/uL (130-400); RED BLOOD COUNT 4.24 10*6/uL (4.50-5.90); RED CELL DISTRI WIDTH 13.1 % (0-14.5); WHITE BLOOD COUNT 5.7 10*3/uL (4.8-10.8)
[2020-06-29 06:55] LABS: BUN 9 mg/dl (7-24); CHLORIDE 107 mmol/L (98-107); CREATININE 0.74 mg/dL (0.70-1.30); POTASSIUM 4.1 mmol/L (3.5-5.1); SODIUM 141 mmol/L (136-145)
[2020-06-29 08:00] VITALS: BP 124/45
[2020-06-29 12:00] VITALS: BP 113/96
[2020-06-29] MEDS ORDERED: VANCOCIN125 M1 PO (15:57)
[2020-06-29] MEDS ORDERED: VANCOCIN250 M1 PO (15:57)
[2020-06-29 16:00] VITALS: BP 139/69
[2020-06-29 20:00] VITALS: BP 93/74
[2020-06-30] VITALS: BP 149/75
[2020-06-30 06:35] LABS: BASO % 0.5 % (0.0-1.0); EOS # 0.3 10*3/uL (0.0-0.4); EOS % 5.3 % (1.0-4.0); LYMPH # 1.1 10*3/uL (1.3-4.4); LYMPH % 20.1 % (27.0-41.0); MEAN CELL VOLUME 96.4 fl (80.0-94.0); MEAN CORPUSCULAR HGB 31.8 pg (27.0-31.0); MEAN PLATELET VOLUME 9.5 fl (9.6-12.3); MONO # 0.7 10*3/uL (0.1-1.0); MONO % 12.5 % (3.0-9.0); NEUT # 3.5 10*3/uL (2.3-7.9); NEUT % 61.2 % (47.0-73.0); PLATELET COUNT AUTOMATED 242 10*3/uL (130-400); RED BLOOD COUNT 4.15 10*6/uL (4.50-5.90); RED CELL DISTRI WIDTH 12.9 % (0-14.5); WHITE BLOOD COUNT 5.7 10*3/uL (4.8-10.8)
[2020-06-30 06:47] LABS: BUN 9 mg/dl (7-24); CHLORIDE 107 mmol/L (98-107); CREATININE 0.62 mg/dL (0.70-1.30); POTASSIUM 4.1 mmol/L (3.5-5.1); SODIUM 140 mmol/L (136-145)
[2020-06-30 08:00] VITALS: BP 152/82
[2020-06-30 12:00] VITALS: BP 158/74
[2020-06-30 16:00] VITALS: BP 155/68
[2020-06-30 20:00] VITALS: BP 139/71
[2020-07-01] VITALS: BP 141/76
[2020-07-01 08:00] VITALS: BP 152/88
[2020-07-01] MEDS ORDERED: LACTINEX 0.2 MG1 TAB PO (11:29)
[2020-07-01] MEDS ORDERED: VITAMIN D3125 MC1 PO (11:29)
[2020-07-01] MEDS ORDERED: VITAMIN B-12100 MCG PO (11:29)
== END 2020-07-01 13:00 | disposition home or self-care (01) | DRG 373 ==
LOC: ED 16:12 → 5E 16:56 → EDHOLD 16:56 → 5E 21:06
PROVIDERS: Emergency Medicine; Hospitalist; Internal Medicine; ADMIT Internal Medicine; ATTEND Internal Medicine
DX: A04.72 Enterocolitis due to Clostridium difficile, not specified as recurrent (principal); K76.0 Fatty (change of) liver, not elsewhere classified; I25.10 Atherosclerotic heart disease of native coronary artery without angina pectoris; K21.9 Gastro-esophageal reflux disease without esophagitis; J44.9 Chronic obstructive pulmonary disease, unspecified; G89.29 Other chronic pain; E83.41 Hypermagnesemia; M54.9 Dorsalgia, unspecified; I10 Essential (primary) hypertension; E53.8 Deficiency of other specified B group vitamins; Z90.49 Acquired absence of other specified parts of digestive tract; Z95.5 Presence of coronary angioplasty implant and graft; Z81.8 Family history of other mental and behavioral disorders

== ENCOUNTER 2020-07-07 12:32 | Emergency (ER) | payer MEDICARE ==
[~2020-07-07] VITALS: Wt 115.7 kg
[~2020-07-07 12:32] MED LIST changes: +LACTINEX 0.2 MG1 TAB PO; +PANTOPRAZOLE SO40 MG PO; +VITAMIN B-12100 MCG PO; +VITAMIN D3125 MC1 PO
[2020-07-07 12:53] LABS: BILIRUBIN Negative (Negative); BLOOD Negative (Negative); CLARITY Clear (Clear); COLOR Yellow (Yellow); GLUCOSE Negative (Negative); KETONE Negative (Negative); LEUKO ESTERASE Negative (Negative); NITRITE Negative (Negative); PH 7.5 (4.5-8.0); SPECIFIC GRAVITY 1.015 (1.001-1.030); UROBILINOGEN 0.2 E.U./dl (0.0-1.0)
[2020-07-07 13:25] LABS: MUCOUS 1+; RBC 0-2 rbc/hpf (0-2); WBC 0-2 wbc/hpf (0-5)
[2020-07-07 14:35] LABS: BASO % 0.5 % (0.0-1.0); EOS # 0.2 10*3/uL (0.0-0.4); EOS % 3.2 % (1.0-4.0); HEMATOCRIT 42.9 % (42.0-52.0); LYMPH # 0.9 10*3/uL (1.3-4.4); LYMPH % 15.6 % (27.0-41.0); MEAN CELL VOLUME 96.6 fl (80.0-94.0); MEAN CORPUSCULAR HGB 31.8 pg (27.0-31.0); MEAN CORPUSCULAR HGB CONC 32.9 g/dl (33.0-37.0); MEAN PLATELET VOLUME 9.2 fl (9.6-12.3); MONO # 0.7 10*3/uL (0.1-1.0); MONO % 11.8 % (3.0-9.0); NEUT # 4.1 10*3/uL (2.3-7.9); NEUT % 68.7 % (47.0-73.0); PLATELET COUNT AUTOMATED 261 10*3/uL (130-400); RED BLOOD COUNT 4.44 10*6/uL (4.50-5.90); RED CELL DISTRI WIDTH 13.2 % (0-14.5)
[2020-07-07 14:51] LABS: ALBUMIN 3.3 gm/dl (3.1-4.5); ALKALINE PHOSPHATASE 62 U/L (45-117); BUN 11 mg/dl (7-24); CHLORIDE 109 mmol/L (98-107); CREATININE 0.62 mg/dL (0.70-1.30); LIPASE 110 U/L (73-393); POTASSIUM 3.6 mmol/L (3.5-5.1); SGOT/AST 23 IU/L (3-35); SGPT/ALT 25 U/L (12-78); SODIUM 140 mmol/L (136-145); TOTAL PROTEIN 6.8 gm/dL (6.4-8.2)
== END 2020-07-07 17:02 | disposition left against medical advice (07) ==
LOC: ED 12:32
PROVIDERS: Emergency Medicine; Physician Assistant
DX: N23 Unspecified renal colic (principal); I10 Essential (primary) hypertension; F41.9 Anxiety disorder, unspecified; F31.9 Bipolar disorder, unspecified; Z88.6 Allergy status to analgesic agent; Z79.899 Other long term (current) drug therapy; Z90.49 Acquired absence of other specified parts of digestive tract; Z98.890 Other specified postprocedural states; Z95.818 Presence of other cardiac implants and grafts; Z87.891 Personal history of nicotine dependence

== ENCOUNTER 2020-07-15 19:14 | Emergency (ER) | payer MEDICARE ==
[~2020-07-15] VITALS: Ht 193 cm; Wt 102.1 kg
== END 2020-07-15 20:45 | disposition home or self-care (01) ==
LOC: ED 19:14
DX: M79.605 Pain in left leg (principal); R20.2 Paresthesia of skin; I10 Essential (primary) hypertension; F41.9 Anxiety disorder, unspecified; F31.9 Bipolar disorder, unspecified; Z88.6 Allergy status to analgesic agent; Z79.899 Other long term (current) drug therapy; Z79.2 Long term (current) use of antibiotics; Z90.49 Acquired absence of other specified parts of digestive tract; Z98.890 Other specified postprocedural states; Z95.5 Presence of coronary angioplasty implant and graft; Z87.891 Personal history of nicotine dependence; Z87.442 Personal history of urinary calculi

== ENCOUNTER 2020-07-20 16:02 | Emergency (ER) | payer MEDICARE ==
[~2020-07-20] VITALS: Ht 193 cm; Wt 113.4 kg
== END 2020-07-20 18:00 | disposition left against medical advice (07) ==
LOC: ED 16:02
DX: R39.198 Other difficulties with micturition (principal); R11.2 Nausea with vomiting, unspecified; Z53.21 Procedure and treatment not carried out due to patient leaving prior to being seen by health care provider

== ENCOUNTER 2020-07-21 10:54 | Emergency (ER) | payer MEDICARE ==
[~2020-07-21] VITALS: Wt 112.5 kg
[2020-07-21 11:44] LABS: BASO % 0.3 % (0.0-1.0); EOS # 0.3 10*3/uL (0.0-0.4); EOS % 4.2 % (1.0-4.0); HEMATOCRIT 41.6 % (42.0-52.0); LYMPH # 0.9 10*3/uL (1.3-4.4); LYMPH % 13.2 % (27.0-41.0); MEAN CORPUSCULAR HGB CONC 33.7 g/dl (33.0-37.0); MEAN PLATELET VOLUME 9.1 fl (9.6-12.3); MONO # 0.7 10*3/uL (0.1-1.0); NEUT # 4.8 10*3/uL (2.3-7.9); PLATELET COUNT AUTOMATED 301 10*3/uL (130-400); RED BLOOD COUNT 4.38 10*6/uL (4.50-5.90); RED CELL DISTRI WIDTH 13.4 % (0-14.5); WHITE BLOOD COUNT 6.6 10*3/uL (4.8-10.8)
[2020-07-21 11:55] LABS: ACT PARTIAL THROMBO TIME 28.5 SECONDS (20.0-32.1)
[2020-07-21 11:58] LABS: ALBUMIN 3.2 gm/dl (3.1-4.5); ALKALINE PHOSPHATASE 68 U/L (45-117); BUN 14 mg/dl (7-24); CHLORIDE 105 mmol/L (98-107); POTASSIUM 3.6 mmol/L (3.5-5.1); SGOT/AST 41 IU/L (3-35); SGPT/ALT 22 U/L (12-78); SODIUM 139 mmol/L (136-145); TOTAL PROTEIN 6.8 gm/dL (6.4-8.2)
== END 2020-07-21 14:30 | disposition home or self-care (01) ==
LOC: ED 10:54
PROVIDERS: Emergency Medicine
DX: K52.9 Noninfective gastroenteritis and colitis, unspecified (principal); R11.2 Nausea with vomiting, unspecified; R10.9 Unspecified abdominal pain; G89.29 Other chronic pain; I25.10 Atherosclerotic heart disease of native coronary artery without angina pectoris; J44.9 Chronic obstructive pulmonary disease, unspecified; I10 Essential (primary) hypertension; K21.9 Gastro-esophageal reflux disease without esophagitis; F41.9 Anxiety disorder, unspecified; F31.9 Bipolar disorder, unspecified; Z88.6 Allergy status to analgesic agent; Z79.899 Other long term (current) drug therapy; Z90.49 Acquired absence of other specified parts of digestive tract; Z98.890 Other specified postprocedural states; Z87.891 Personal history of nicotine dependence; Z95.818 Presence of other cardiac implants and grafts

== ENCOUNTER 2020-09-29 20:59 | Emergency (ER) | payer OTHER ==
[~2020-09-29] VITALS: Wt 112.5 kg
[2020-09-30] MEDS ORDERED: MEDROL DOSEPAK4 MG PO (00:03)
== END 2020-09-30 00:36 | disposition home or self-care (01) ==
LOC: ED 20:59
DX: M54.42 Lumbago with sciatica, left side (principal); I25.10 Atherosclerotic heart disease of native coronary artery without angina pectoris; J44.9 Chronic obstructive pulmonary disease, unspecified; K21.9 Gastro-esophageal reflux disease without esophagitis; Z88.6 Allergy status to analgesic agent; Z79.899 Other long term (current) drug therapy; Z90.49 Acquired absence of other specified parts of digestive tract; Z98.890 Other specified postprocedural states; Z95.818 Presence of other cardiac implants and grafts

== ENCOUNTER 2020-11-17 20:58 | Emergency (ER) | payer OTHER ==
[~2020-11-17] VITALS: Ht 193 cm; Wt 113.4 kg
[~2020-11-17 20:58] MED LIST changes: +ASPIRIN CHILDRE81 MG PO; +ATORVASTATIN CA80 M1 PO; +DOXYCYCLINE MO100 M1 PO; +MEDROL DOSEPAK4 MG PO
== END 2020-11-17 22:24 | disposition home or self-care (01) ==
LOC: ED 20:58
DX: S60.212A Contusion of left wrist, initial encounter (principal); Z87.891 Personal history of nicotine dependence; Z90.49 Acquired absence of other specified parts of digestive tract; Z79.899 Other long term (current) drug therapy; Z79.82 Long term (current) use of aspirin; Z88.5 Allergy status to narcotic agent; W01.0XXA Fall on same level from slipping, tripping and stumbling without subsequent striking against object, initial encounter; Z91.81 History of falling; Y93.89 Activity, other specified; Y92.89 Other specified places as the place of occurrence of the external cause; Y99.9 Unspecified external cause status

== ENCOUNTER 2021-01-25 19:02 | Emergency (ER) | payer OTHER ==
[~2021-01-25] VITALS: Ht 193 cm; Wt 113.4 kg
[2021-01-25 21:00] LABS: BILIRUBIN Negative (Negative); BLOOD Negative (Negative); CLARITY Clear (Clear); COLOR Yellow (Yellow); GLUCOSE Negative (Negative); KETONE Trace (Negative); LEUKO ESTERASE Negative (Negative); NITRITE Negative (Negative); SPECIFIC GRAVITY >= 1.030 (1.001-1.030)
[2021-01-25 21:13] LABS: BACTERIA TRACE; CALCIUM OXALATE CRYSTALS 1+; EPITHELIAL CELLS 0-2; MUCOUS 1+; RBC 0-2 rbc/hpf (0-2)
== END 2021-01-25 22:30 | disposition home or self-care (01) ==
LOC: ED 19:02
PROVIDERS: Internal Medicine
DX: N20.0 Calculus of kidney (principal); Z87.442 Personal history of urinary calculi; Z88.6 Allergy status to analgesic agent; Z79.899 Other long term (current) drug therapy; Z79.2 Long term (current) use of antibiotics; Z79.82 Long term (current) use of aspirin; Z90.49 Acquired absence of other specified parts of digestive tract; Z98.890 Other specified postprocedural states; Z95.5 Presence of coronary angioplasty implant and graft; Z87.891 Personal history of nicotine dependence

== ENCOUNTER 2021-03-25 08:00 | Inpatient (IN) | payer OTHER ==
[~2021-03-25] VITALS: Ht 193 cm; Wt 120.3 kg
[2021-03-25 08:11] VITALS: BP 185/83
[2021-03-25 08:55] LABS: BASO % 0.3 % (0.0-1.0); EOS # 0.3 10*3/uL (0.0-0.4); EOS % 2.6 % (1.0-4.0); HEMATOCRIT 43.3 % (42.0-52.0); LYMPH # 1.1 10*3/uL (1.3-4.4); LYMPH % 10.7 % (27.0-41.0); MEAN CELL VOLUME 94.5 fl (80.0-94.0); MEAN CORPUSCULAR HGB 32.8 pg (27.0-31.0); MEAN CORPUSCULAR HGB CONC 34.6 g/dl (33.0-37.0); MEAN PLATELET VOLUME 9.2 fl (9.6-12.3); MONO # 0.7 10*3/uL (0.1-1.0); MONO % 7.1 % (3.0-9.0); NEUT # 8.3 10*3/uL (2.3-7.9); NEUT % 78.9 % (47.0-73.0); PLATELET COUNT AUTOMATED 303 10*3/uL (130-400); RED BLOOD COUNT 4.58 10*6/uL (4.50-5.90); RED CELL DISTRI WIDTH 12.8 % (0-14.5); WHITE BLOOD COUNT 10.5 10*3/uL (4.8-10.8)
[2021-03-25 09:11] LABS: ALBUMIN 3.2 gm/dl (3.1-4.5); ALKALINE PHOSPHATASE 85 U/L (45-117); BUN 10 mg/dl (7-24); CHLORIDE 107 mmol/L (98-107); CREATININE 0.65 mg/dL (0.70-1.30); POTASSIUM 3.9 mmol/L (3.5-5.1); SGOT/AST 26 IU/L (3-35); SGPT/ALT 23 U/L (12-78); SODIUM 138 mmol/L (136-145); TOTAL PROTEIN 6.9 gm/dL (6.4-8.2)
[2021-03-25 09:16] LABS: TROPONIN I < 0.015 ng/ml (<0.045)
[2021-03-25 11:50] VITALS: BP 153/89
[2021-03-25] MEDS ORDERED: ATORVASTATIN CA40 M1 PO (11:51)
[2021-03-25 13:04] VITALS: BP 122/53
[2021-03-25 15:03] VITALS: BP 163/87
[2021-03-25 20:00] VITALS: BP 159/75
[2021-03-26] VITALS: BP 152/88
[2021-03-26 06:24] LABS: BASO % 0.1 % (0.0-1.0); HEMATOCRIT 42.1 % (42.0-52.0); LYMPH # 1.1 10*3/uL (1.3-4.4); LYMPH % 6.6 % (27.0-41.0); MEAN CELL VOLUME 94.8 fl (80.0-94.0); MEAN CORPUSCULAR HGB CONC 33.7 g/dl (33.0-37.0); MEAN PLATELET VOLUME 10.1 fl (9.6-12.3); MONO % 6.3 % (3.0-9.0); NEUT # 13.9 10*3/uL (2.3-7.9); NEUT % 86.4 % (47.0-73.0); PLATELET COUNT AUTOMATED 336 10*3/uL (130-400); RED BLOOD COUNT 4.44 10*6/uL (4.50-5.90); RED CELL DISTRI WIDTH 12.8 % (0-14.5); WHITE BLOOD COUNT 16.1 10*3/uL (4.8-10.8)
[2021-03-26 06:46] LABS: CHLORIDE 109 mmol/L (98-107); POTASSIUM 4.2 mmol/L (3.5-5.1); SODIUM 141 mmol/L (136-145)
[2021-03-26 06:58] LABS: VITAMIN D, 25-HYDROXY 22.8 ng/mL (30-100)
[2021-03-26 07:01] LABS: ALKALINE PHOSPHATASE 80 U/L (45-117); BUN 9 mg/dl (7-24); CHOLESTEROL 158 mg/dL (<200); CREATININE 0.59 mg/dL (0.70-1.30); LDL CHOLESTEROL 96 mg/dL (9-159); SGOT/AST 23 IU/L (3-35); SGPT/ALT 20 U/L (12-78); THYROID STIM HORMONE (HS) 0.206 uIU/ml (0.358-4.75); TOTAL PROTEIN 6.7 gm/dL (6.4-8.2); TRIGLYCERIDES 87 mg/dl (<150)
[2021-03-26 08:00] VITALS: BP 156/87
[2021-03-26 12:00] VITALS: BP 150/80
[2021-03-26 16:00] VITALS: BP 104/53
[2021-03-26 20:00] VITALS: BP 117/85
[2021-03-27] VITALS: BP 156/58
[2021-03-27 06:47] LABS: BASO % 0.1 % (0.0-1.0); EOS % 0.1 % (1.0-4.0); HEMATOCRIT 40.8 % (42.0-52.0); LYMPH # 1.5 10*3/uL (1.3-4.4); LYMPH % 8.3 % (27.0-41.0); MEAN CELL VOLUME 95.1 fl (80.0-94.0); MEAN CORPUSCULAR HGB 31.7 pg (27.0-31.0); MEAN CORPUSCULAR HGB CONC 33.3 g/dl (33.0-37.0); MEAN PLATELET VOLUME 9.5 fl (9.6-12.3); MONO # 1.1 10*3/uL (0.1-1.0); NEUT # 15.3 10*3/uL (2.3-7.9); NEUT % 84.7 % (47.0-73.0); PLATELET COUNT AUTOMATED 334 10*3/uL (130-400); RED BLOOD COUNT 4.29 10*6/uL (4.50-5.90); RED CELL DISTRI WIDTH 13.1 % (0-14.5)
[2021-03-27 06:57] LABS: BUN 11 mg/dl (7-24); CHLORIDE 108 mmol/L (98-107); CREATININE 0.55 mg/dL (0.70-1.30); POTASSIUM 4.4 mmol/L (3.5-5.1); SODIUM 139 mmol/L (136-145)
[2021-03-27 08:00] VITALS: BP 148/84
[2021-03-27 11:54] VITALS: BP 132/78
[2021-03-27 16:00] VITALS: BP 123/68
[2021-03-27 20:00] VITALS: BP 124/70
[2021-03-28] VITALS: BP 127/51
[2021-03-28 07:21] LABS: BASO % 0.2 % (0.0-1.0); EOS % 0.1 % (1.0-4.0); HEMATOCRIT 42.2 % (42.0-52.0); LYMPH # 1.6 10*3/uL (1.3-4.4); LYMPH % 9.9 % (27.0-41.0); MEAN CELL VOLUME 96.8 fl (80.0-94.0); MEAN CORPUSCULAR HGB 32.1 pg (27.0-31.0); MEAN CORPUSCULAR HGB CONC 33.2 g/dl (33.0-37.0); MEAN PLATELET VOLUME 9.9 fl (9.6-12.3); MONO % 6.1 % (3.0-9.0); NEUT # 13.6 10*3/uL (2.3-7.9); NEUT % 82.4 % (47.0-73.0); PLATELET COUNT AUTOMATED 336 10*3/uL (130-400); RED BLOOD COUNT 4.36 10*6/uL (4.50-5.90); RED CELL DISTRI WIDTH 13.1 % (0-14.5); WHITE BLOOD COUNT 16.5 10*3/uL (4.8-10.8)
[2021-03-28 07:41] LABS: BUN 13 mg/dl (7-24); CHLORIDE 106 mmol/L (98-107); CREATININE 0.62 mg/dL (0.70-1.30); POTASSIUM 4.1 mmol/L (3.5-5.1); SODIUM 139 mmol/L (136-145)
[2021-03-28 07:50] VITALS: BP 140/78
[2021-03-28 11:50] VITALS: BP 124/76
[2021-03-28 16:00] VITALS: BP 126/88
[2021-03-28 20:00] VITALS: BP 129/70
[2021-03-29] VITALS: BP 135/73
[2021-03-29 07:18] LABS: BUN 13 mg/dl (7-24); CHLORIDE 105 mmol/L (98-107); CREATININE 0.64 mg/dL (0.70-1.30); POTASSIUM 3.9 mmol/L (3.5-5.1); SODIUM 138 mmol/L (136-145)
[2021-03-29 07:22] LABS: HEMATOCRIT 41.3 % (42.0-52.0); MEAN CELL VOLUME 97.9 fl (80.0-94.0); MEAN CORPUSCULAR HGB 32.5 pg (27.0-31.0); MEAN CORPUSCULAR HGB CONC 33.2 g/dl (33.0-37.0); MEAN PLATELET VOLUME 10.1 fl (9.6-12.3); PLATELET COUNT AUTOMATED 296 10*3/uL (130-400); RED BLOOD COUNT 4.22 10*6/uL (4.50-5.90); RED CELL DISTRI WIDTH 13.2 % (0-14.5); WHITE BLOOD COUNT 14.1 10*3/uL (4.8-10.8)
[2021-03-29 08:00] VITALS: BP 136/74
[2021-03-29 08:04] LABS: PLATELET SUFFICIENCY NORMAL (NORMAL); TOTAL CELLS COUNTED 100 #CELLS
[2021-03-29] MEDS ORDERED: PREDNISONE10 MG PO (11:01)
[2021-03-29] MEDS ORDERED: SYMB160 INH (11:01)
[2021-03-29 12:00] VITALS: BP 146/78
[2021-03-29 15:59] VITALS: BP 130/70
== END 2021-03-29 16:45 | disposition home or self-care (01) | DRG 192 ==
LOC: ED 08:00 → EDHOLD 10:00 → 4E 10:00
PROVIDERS: Emergency Medicine; Family Medicine; Internal Medicine; ADMIT Student in an Organized Health Care Education/Training Program; ATTEND Student in an Organized Health Care Education/Training Program
DX: J44.1 Chronic obstructive pulmonary disease with (acute) exacerbation (principal); I10 Essential (primary) hypertension; I16.0 Hypertensive urgency; K76.0 Fatty (change of) liver, not elsewhere classified; I25.10 Atherosclerotic heart disease of native coronary artery without angina pectoris; K21.9 Gastro-esophageal reflux disease without esophagitis; E53.8 Deficiency of other specified B group vitamins; E55.9 Vitamin D deficiency, unspecified; M54.9 Dorsalgia, unspecified; G89.29 Other chronic pain; Z88.5 Allergy status to narcotic agent; Z79.899 Other long term (current) drug therapy; Z90.49 Acquired absence of other specified parts of digestive tract; Z95.5 Presence of coronary angioplasty implant and graft; Z87.891 Personal history of nicotine dependence

== ENCOUNTER 2021-05-18 10:38 | Emergency (ER) | payer OTHER ==
[~2021-05-18] VITALS: Wt 115.7 kg
[~2021-05-18 10:38] MED LIST changes: +ATORVASTATIN CA40 M1 PO; +SYMB160 INH
[2021-05-18 11:47] LABS: BASO % 0.6 % (0.0-1.0); EOS # 0.2 10*3/uL (0.0-0.4); EOS % 2.6 % (1.0-4.0); HEMATOCRIT 43.5 % (42.0-52.0); LYMPH # 1.5 10*3/uL (1.3-4.4); LYMPH % 22.1 % (27.0-41.0); MEAN CELL VOLUME 95.6 fl (80.0-94.0); MEAN CORPUSCULAR HGB 32.1 pg (27.0-31.0); MEAN CORPUSCULAR HGB CONC 33.6 g/dl (33.0-37.0); MEAN PLATELET VOLUME 9.1 fl (9.6-12.3); MONO # 0.8 10*3/uL (0.1-1.0); NEUT # 4.4 10*3/uL (2.3-7.9); NEUT % 63.6 % (47.0-73.0); PLATELET COUNT AUTOMATED 288 10*3/uL (130-400); RED BLOOD COUNT 4.55 10*6/uL (4.50-5.90); RED CELL DISTRI WIDTH 13.6 % (0-14.5)
[2021-05-18 12:07] LABS: ALBUMIN 3.7 gm/dl (3.1-4.5); BUN 15 mg/dl (7-24); CHLORIDE 106 mmol/L (98-107); POTASSIUM 3.7 mmol/L (3.5-5.1); SGOT/AST 37 IU/L (3-35); SGPT/ALT 28 U/L (12-78); SODIUM 139 mmol/L (136-145)
[2021-05-18 12:10] LABS: ALKALINE PHOSPHATASE 74 U/L (45-117)
[2021-05-18 13:51] LABS: BILIRUBIN Negative (Negative); BLOOD Negative (Negative); CLARITY Clear (Clear); COLOR Yellow (Yellow); GLUCOSE Negative (Negative); KETONE Trace (Negative); LEUKO ESTERASE Negative (Negative); NITRITE Negative (Negative); PH 5.5 (4.5-8.0); SPECIFIC GRAVITY >= 1.030 (1.001-1.030); UROBILINOGEN 0.2 E.U./dl (0.0-1.0)
[2021-05-18 14:18] LABS: BACTERIA TRACE; CALCIUM OXALATE CRYSTALS Trace; RBC 0-2 rbc/hpf (0-2); WBC 0-2 wbc/hpf (0-5)
[2021-05-18 14:19] LABS: MUCOUS 2+
[2021-05-18] MEDS ORDERED: FLOMAX0.4 MG PO (14:42)
[2021-05-18] MEDS ORDERED: NAPROSYN500 MG PO (14:42)
== END 2021-05-18 14:48 | disposition home or self-care (01) ==
LOC: ED 10:38
PROVIDERS: Physician Assistant
DX: R10.9 Unspecified abdominal pain (principal); R11.2 Nausea with vomiting, unspecified; Z88.6 Allergy status to analgesic agent; Z79.899 Other long term (current) drug therapy; Z87.891 Personal history of nicotine dependence

== ENCOUNTER 2021-05-25 13:52 | Emergency (ER) | payer OTHER ==
[~2021-05-25] VITALS: Ht 193 cm; Wt 115.7 kg
[~2021-05-25 13:52] MED LIST changes: +FLOMAX0.4 MG PO; +NAPROSYN500 MG PO
== END 2021-05-25 21:39 | disposition left against medical advice (07) ==
LOC: ED 13:52
DX: M54.9 Dorsalgia, unspecified (principal); Z53.21 Procedure and treatment not carried out due to patient leaving prior to being seen by health care provider

== ENCOUNTER 2021-05-28 12:09 | Emergency (ER) | payer OTHER ==
[~2021-05-28] VITALS: Wt 115.7 kg
[2021-05-28 12:41] LABS: HEMATOCRIT 42.6 % (42.0-52.0); LYMPH # 0.6 10*3/uL (1.3-4.4); MEAN CELL VOLUME 92.6 fl (80.0-94.0); MEAN CORPUSCULAR HGB CONC 34.5 g/dl (33.0-37.0); MEAN PLATELET VOLUME 9.9 fl (9.6-12.3); MONO # 0.3 10*3/uL (0.1-1.0); MONO % 11.4 % (3.0-9.0); NEUT % 69.3 % (47.0-73.0); PLATELET COUNT AUTOMATED 188 10*3/uL (130-400); RED CELL DISTRI WIDTH 13.4 % (0-14.5); WHITE BLOOD COUNT 2.9 10*3/uL (4.8-10.8)
[2021-05-28 12:56] LABS: ALBUMIN 3.1 gm/dl (3.1-4.5); ALKALINE PHOSPHATASE 66 U/L (45-117); BUN 10 mg/dl (7-24); CHLORIDE 107 mmol/L (98-107); CREATININE 0.73 mg/dL (0.70-1.30); POTASSIUM 3.7 mmol/L (3.5-5.1); SGOT/AST 59 IU/L (3-35); SGPT/ALT 36 U/L (12-78); SODIUM 136 mmol/L (136-145); TOTAL PROTEIN 6.8 gm/dL (6.4-8.2)
[2021-05-28] MEDS ORDERED: PERCOCET 10-321 EACH PO (13:12)
== END 2021-05-28 13:38 | disposition left against medical advice (07) ==
LOC: ED 12:09
PROVIDERS: Student in an Organized Health Care Education/Training Program
DX: R10.32 Left lower quadrant pain (principal); R06.02 Shortness of breath; Z76.5 Malingerer [conscious simulation]; Z88.8 Allergy status to other drugs, medicaments and biological substances; Z79.899 Other long term (current) drug therapy; Z87.891 Personal history of nicotine dependence

== ENCOUNTER 2021-05-31 11:26 | Emergency (ER) | payer OTHER ==
[~2021-05-31] VITALS: Ht 193 cm; Wt 115.7 kg
[~2021-05-31 11:26] MED LIST changes: +PERCOCET 10-321 EACH PO
[2021-05-31 15:20] LABS: BASO % 0.2 % (0.0-1.0); EOS % 0.2 % (1.0-4.0); HEMATOCRIT 41.1 % (42.0-52.0); LYMPH # 0.7 10*3/uL (1.3-4.4); LYMPH % 14.7 % (27.0-41.0); MEAN CELL VOLUME 91.1 fl (80.0-94.0); MEAN CORPUSCULAR HGB 32.2 pg (27.0-31.0); MEAN CORPUSCULAR HGB CONC 35.3 g/dl (33.0-37.0); MEAN PLATELET VOLUME 9.6 fl (9.6-12.3); MONO # 0.7 10*3/uL (0.1-1.0); MONO % 14.3 % (3.0-9.0); NEUT # 3.5 10*3/uL (2.3-7.9); NEUT % 70.4 % (47.0-73.0); PLATELET COUNT AUTOMATED 268 10*3/uL (130-400); RED BLOOD COUNT 4.51 10*6/uL (4.50-5.90); RED CELL DISTRI WIDTH 13.2 % (0-14.5); WHITE BLOOD COUNT 4.9 10*3/uL (4.8-10.8)
[2021-05-31 15:37] LABS: BUN 8 mg/dl (7-24); CHLORIDE 107 mmol/L (98-107); CREATININE 0.56 mg/dL (0.70-1.30); POTASSIUM 3.6 mmol/L (3.5-5.1); SODIUM 138 mmol/L (136-145)
[2021-05-31] MEDS ORDERED: LEVOFLOXACIN750 M2 PO (20:57)
== END 2021-05-31 21:06 | disposition home or self-care (01) ==
LOC: ED 11:26
PROVIDERS: Emergency Medicine
DX: U07.1 COVID-19 (principal); J18.9 Pneumonia, unspecified organism; J44.9 Chronic obstructive pulmonary disease, unspecified; J45.909 Unspecified asthma, uncomplicated; I25.10 Atherosclerotic heart disease of native coronary artery without angina pectoris; K21.9 Gastro-esophageal reflux disease without esophagitis; I10 Essential (primary) hypertension; Z88.6 Allergy status to analgesic agent; Z79.899 Other long term (current) drug therapy; Z90.49 Acquired absence of other specified parts of digestive tract; Z98.890 Other specified postprocedural states; Z87.891 Personal history of nicotine dependence

== ENCOUNTER 2021-07-03 13:19 | Emergency (ER) | payer OTHER, MEDICAID ==
[~2021-07-03] VITALS: Ht 193 cm; Wt 115.7 kg
[~2021-07-03 13:19] MED LIST changes: +LEVOFLOXACIN750 M2 PO
[2021-07-03 14:11] LABS: BILIRUBIN Negative (Negative); BLOOD Negative (Negative); CLARITY Clear (Clear); COLOR Yellow (Yellow); GLUCOSE Negative (Negative); KETONE Negative (Negative); LEUKO ESTERASE Negative (Negative); NITRITE Negative (Negative); PH 7.5 (4.5-8.0); UROBILINOGEN 0.2 E.U./dl (0.0-1.0)
[2021-07-03 14:54] LABS: BACTERIA TRACE; WBC 0-2 wbc/hpf (0-5)
== END 2021-07-03 14:32 | disposition home or self-care (01) ==
LOC: ED 13:19
PROVIDERS: Nurse Practitioner Family
DX: K52.1 Toxic gastroenteritis and colitis (principal); T36.0X5A Adverse effect of penicillins, initial encounter; Z88.6 Allergy status to analgesic agent; Z79.2 Long term (current) use of antibiotics; Z79.899 Other long term (current) drug therapy; Z90.49 Acquired absence of other specified parts of digestive tract; Z98.890 Other specified postprocedural states; Z95.5 Presence of coronary angioplasty implant and graft; Z87.891 Personal history of nicotine dependence; Y92.89 Other specified places as the place of occurrence of the external cause